=== PATIENT | female | born 1955 | race American Indian/Alaskan Native ===

== ENCOUNTER 2017-09-29 07:18 | Inpatient (IN) | payer MEDICARE ==
[~2017-09-29 07:18] MED LIST: AMIDATE IV ONE; NACL 0.9% 1000 ML ONE; ZEMURON IV ONE
[2017-09-29 10:03] LABS: Hematocrit 23.2 % (30.3-42.9); Hemoglobin 7.5 gm/dl (10.1-14.3); INR 0.95 (0.87-1.13); Mean Corpuscular HGB Conc 32 % (30-34); Mean Corpuscular Hemoglobin 28 pg (28-32); Mean Corpuscular Volume 85 fl (79-97); Partial Thromboplastin Time 22.1 Sec. (24.2-36.6); Platelet Count 348 K/mm3 (140-440); Red Blood Count 2.73 M/mm3 (3.65-5.03)
--- NOTE | 2017-09-29 10:21 | Emergency Department Report ---
HPI - General Chief Complaint: Medical Clearance Time Seen by Provider: 09/29/17 10:01 - HPI HPI: 62-year-old AA female presents to the emergency department via EMS from home after she had bleeding from her right upper extremity dialysis fistula. She woke up around 3:45 AM and noticed that it was bleeding but then it started bleeding more profusely. She held pressure and it stopped about 20 minutes later. However then she was getting herself ready for dialysis this morning and it started to bleed again. She once again held pressure, called 911 and was brought in to be seen. She says that the bleeding stopped prior to coming in this morning. Her pin attacher is Dr. Bell and she gets dialysis on Monday/ Monday/Monday. She also has a history of hypertension and anemia of chronic kidney disease. ED Past Medical Hx - Past Medical History Hx Hypertension: Yes Hx Heart Attack/AMI: No Hx Congestive Heart Failure: No Hx Diabetes: No Hx Deep Vein Thrombosis: No Hx Pulmonary Embolism: No Hx Liver Disease: No Hx Renal Disease: Yes Hx Sickle Cell Disease: No Hx Arthritis: No Hx Seizures: No Hx Kidney Stones: No Hx Asthma: No Hx COPD: No Hx Tuberculosis: No Hx Dementia: No Hx HIV: No Additional medical history: Chronic renal failure - Surgical History Hx Coronary Stent: No Hx Open Heart Surgery: No Hx Pacemaker: No Hx Internal Defibrillator: No Hx Cholecystectomy: No Hx Appendectomy: No Hx Breast Surgery: No Additional Surgical History: Shoulder surgery - Social History Smoking Status: Former Smoker - Medications Home Medications: Home Medications Medication Instructions Recorded Confirmed Last Taken Type ALPRAZolam [Xanax] 0.5 mg PO BID PRN 11/28/13 11/28/13 Unknown History Pantoprazole [Protonix INJ] 40 mg IV QDAY 11/28/13 11/28/13 Unknown History traZODone [Desyrel] 100 mg PO QHS 11/28/13 11/28/13 Unknown History Doxazosin [Cardura] 8 mg PO Q12HR #60 tablet 12/10/13 Unknown Rx Iron Aspgly&Ps Cmplx/C/Sucac 1 each PO QDAY #30 capsule 12/10/13 Unknown Rx [Ferrex 150 Plus] Labetalol [Normodyne TAB] 300 mg PO BID #60 tablet 12/10/13 Unknown Rx Lisinopril [Zestril TAB] 40 mg PO BID #60 tablet 12/10/13 Unknown Rx Multivitamin Tab W-MINERAL 1 each PO QDAY 30 Days tablet 12/10/13 Unknown Rx [Multiple Vitamin/Mineral (Theragran M)] NIFEdipine XL [Procardia Xl] 90 mg PO Q12HR #60 tablet 12/10/13 Unknown Rx Ondansetron [Zofran] 4 mg PO Q8HR PRN #10 tablet 12/10/13 Unknown Rx Pantoprazole [Protonix TAB] 40 mg PO QDAY #30 tablet 12/10/13 Unknown Rx hydrALAZINE [Apresoline TAB] 100 mg PO Q8HR #90 tablet 12/10/13 Unknown Rx ED Review of Systems ROS: Stated complaint: BLEEDING FROM DIALYSIS FISTULA Other details as noted in HPI Comment: All other systems reviewed and negative Constitutional: denies: chills, fever Eyes: denies: eye pain, eye discharge, vision change ENT: denies: ear pain, throat pain Respiratory: denies: cough, shortness of breath, wheezing Cardiovascular: denies: chest pain, palpitations Gastrointestinal: denies: abdominal pain, nausea, diarrhea Genitourinary: denies: urgency, dysuria, discharge Musculoskeletal: denies: back pain, joint swelling, arthralgia Skin: denies: rash, lesions Neurological: denies: headache, weakness, paresthesias Physical Exam - Physical Exam Vital Signs: Vital Signs 09/29/17 09/29/17 08:52 08:53 Temperature 97.4 F L Pulse Rate 76 Respiratory 13 14 Rate Blood Pressure 122/86 [Left] O2 Sat by Pulse 100 100 Oximetry Physical Exam: GENERAL: The patient is well-developed well-nourished. HENT: Normocephalic. Atraumatic. Patient has moist mucous membranes. EYES: Extraocular motions are intact. Pupils equal reactive to light bilaterally. NECK: Supple. Trachea is midline. CHEST/LUNGS: Clear to auscultation. There is no respiratory distress noted. HEART/CARDIOVASCULAR: Regular. There is no tachycardia. There is no murmur. ABDOMEN: Abdomen is soft, nontender. Patient has normal bowel sounds. There is no abdominal distention. SKIN: Skin is warm and dry. NEURO: The patient is awake, alert, and oriented. The patient is cooperative. The patient has no focal neurologic deficits. The patient has normal speech and gait. MUSCULOSKELETAL: There is no tenderness or deformity. There is no limitation range of motion. There is no evidence of acute injury. There is a right upper extremity dialysis fistula that has a palpable thrill in home to the proximal portion but none to the distal portion. Distal pulses intact. ED Course Vital Signs 09/29/17 09/29/17 08:52 08:53 Temperature 97.4 F L Pulse Rate 76 Respiratory 13 14 Rate Blood Pressure 122/86 [Left] O2 Sat by Pulse 100 100 Oximetry - Consultations Consultation #1: I spoke with the patient's pin attacher, Dr. Hilliard, who is aware of the patient 's presentation for bleeding dialysis fistula and he is aware that the fistula does not appear to be working at this time with concern for a distal clot. He says that he still wants the patient discharged to follow-up at the dialysis clinic from the emergency Department where he will facilitate an evaluation by the patient's vascular physicians, through [facility], at the clinic. 09/29/17 11:28 ED Medical Decision Making - Lab Data Result diagrams: 09/29/17 09:20 09/29/17 09:20 - Medical Decision Making Patient presented with complaint of bleeding from the dialysis fistula that started earlier this morning but stopped prior presentation. She has been in the emergency department for greater than 4 hours and there has been no return of her fistula bleeding. However just prior to discharge, I reevaluated the fistula and I have concern for a distal clot or malfunction of the fistula as there is no palpable thrill or audible home to the distal portion. I contacted the patient's pin attacher who still would like the patient discharged to the dialysis clinic where he says he has the capability of getting the patient evaluated by her own vascular physicians through [facility]. All of this has been told to the patient and she understands and agrees to the plan. She does have some anemia with a hemoglobin of 7.5 which is lower than her previous hemoglobin of 8.3, but otherwise the patient does not appear symptomatic. She was seen in the emergency department and appears stable. Vital signs stable throughout her ED course. - Differential Diagnosis bleeding fistula, pseudoaneurysm, clot Critical Care Time: No Critical care attestation.: If time is entered above; I have spent that time in minutes in the direct care of this critically ill patient, excluding procedure time. ED Disposition Clinical Impression: Hemorrhage of arteriovenous fistula Qualifiers: Encounter type: initial encounter Qualified Code(s): T82.838A - Hemorrhage due to vascular prosthetic devices, implants and grafts, initial encounter Dialysis AV fistula malfunction Qualifiers: Encounter type: initial encounter Qualified Code(s): T82.590A - Other mechanical complication of surgically created arteriovenous fistula, initial encounter Disposition: TO HOME OR SELFCARE Is pt being admited?: No Condition: Stable Instructions: End-Stage Kidney Disease (ED) Additional Instructions: Please go to your dialysis clinic from the emergency department. Your pin attacher, Dr Hilliard, is aware of the previous bleeding and current malfunction of your dialysis fistula and says that he will have you evaluated by a vascular physician. Return to the emergency department with any worsening of your symptoms or any acute distress. Referrals: MARGI ABDULLAHI MD [Staff Physician] - [facility] Time of Disposition: 11:31
--- NOTE | 2017-09-29 12:20 | History and Physical Report ---
History of Present Illness Chief complaint: My arm is bleeding History of present illness: 62 YO Female with HTN, ESRD on HD(M,W,F), presents to ED for evaluation. Pt states that she has experienced bleeding from her right arm, at the site of herdialysis fistula. Pt states that she awoke from sleep at 0345 hours and discovered bleeding from her fistula. Pt states that bleeding got progressively worse and then stopped approximately 20 minutes later. Pt states that bleeding resumed this morning while getting ready for dialysis this morning. Pt held pressure, and called EMS. Pt transported to [facility] for evaluation and treatment. Pt seen and evaluated in ED and subsequently admitted to medical floor. Vascular surgery consulted. Past History Past Medical History: ESRD, hypertension Past Surgical History: Other (shoulder surgery) Social history: single Family history: hypertension Medications and Allergies Allergies Allergy/AdvReac Type Severity Reaction Status Date / Time codeine AdvReac Nausea Verified 11/28/13 09:46 Home Medications Medication Instructions Recorded Confirmed Last Taken Type ALPRAZolam [Xanax] 0.5 mg PO BID PRN 11/28/13 09/29/17 09/28/17 History Labetalol [Normodyne TAB] 300 mg PO BID #60 tablet 12/10/13 09/29/17 09/28/17 Rx Butalb/Acetamin/Caff 50-325-40 1 tab PO Q6HR PRN 09/29/17 09/29/17 Unknown History [Fioricet] Cyclobenzaprine [Flexeril] 10 mg PO HS PRN 09/29/17 09/29/17 09/28/17 History Dexlansoprazole [Dexilant] 60 mg PO QDAY 09/29/17 09/29/17 09/28/17 History NIFEdipine [] 90 mg PO BID 09/29/17 09/29/17 09/28/17 History Ranitidine HCl [Heartburn Relief] 150 mg PO QPM 09/29/17 09/29/17 09/28/17 History Sevelamer Carbonate [Renvela] 2 tab PO TIDWM MDD 6,400 mg 09/29/17 09/29/1708/17 History Vit B Comp No.3/Folic/C/Biotin 1 each PO QDAY 09/29/17 09/29/17 09/28/17 History [Nephro-Britney Rx Tablet] Zolpidem [Ambien] 10 mg PO QHS PRN 09/29/17 09/29/17 09/28/17 History Review of Systems Constitutional: no weight loss, no weight gain, no fever, no chills Ears, nose, mouth and throat: no ear pain, no ear discharge, no tinnitis, no decreased hearing, no nose pain Breasts: no change in shape, no swelling, no mass Cardiovascular: no chest pain, no orthopnea, no palpitations, no rapid/ irregular heart beat, no edema, no syncope Respiratory: no cough, no cough with sputum, no excessive sputum, no hemoptysis , no shortness of breath, no dyspnea on exertion Gastrointestinal: no nausea, no vomiting, no diarrhea, no constipation, no change in bowel habits Genitourinary Female: no pelvic pain, no flank pain, no menorrhagia, no dysuria , no urinary frequency, no urgency, no stress incontinence, no post void dribbling Rectal: no pain, no incontinence, no bleeding, no itching Musculoskeletal: no neck stiffness, no neck pain, no shooting arm pain, no arm numbness/tingling, no low back pain, no shooting leg pain Integumentary: no rash, no pruritis, no redness, no sores, no wounds Neurological: no head injury, no transient paralysis, no paralysis, no weakness , no parathesias, no numbness, no tingling Psychiatric: no anxiety, no memory loss, no change in sleep habits, no sleep disturbances, no insomnia, no hypersomnia Endocrine: no cold intolerance, no heat intolerance, no polyphagia, no excessive thirst, no polydipsia, no polyuria Hematologic/Lymphatic: no easy bruising, no easy bleeding, no lymphadenopathy, no lymphedema Allergic/Immunologic: no urticaria, no allergic rhinitis, no wheezing, no persistent infections, no anaphylaxis Exam - Constitutional Vitals: Temp Pulse Resp BP Pulse Ox 97.4 F L 84 15 158/91 100 09/29/17 08:52 09/29/17 11:56 09/29/17 11:56 09/29/17 11:56 09/29/17 11:56 General appearance: Present: no acute distress, well-nourished - EENT Eyes: Present: PERRL ENT: hearing intact, clear oral mucosa - Neck Neck: Present: supple, normal ROM - Respiratory Respiratory effort: normal Respiratory: bilateral: CTA - Cardiovascular Heart Sounds: Present: S1 & S2. Absent: rub, click - Extremities Extremities: pulses symmetrical, No edema Peripheral Pulses: within normal limits - Abdominal General gastrointestinal: Present: soft, non-tender, non-distended, normal bowel sounds Female genitourinary: Present: normal - Integumentary Integumentary: Present: clear, warm, dry - Musculoskeletal Musculoskeletal: gait normal, strength equal bilaterally - Psychiatric Psychiatric: appropriate mood/affect, intact judgment & insight - Neurologic Neurologic: CNII-XII intact, moves all extremities Results - Labs CBC & Chem 7: 09/29/17 09:20 09/29/17 09:20 Labs: Abnormal lab results 09/29/17 09/29/17 09/29/17 Range/Units 09:20 09:20 09:20 WBC 16.1 H (4.5-11.0) K/mm3 RBC 2.73 L (3.65-5.03) M/mm3 Hgb 7.5 L (10.1-14.3) gm/dl Hct 23.2 L (30.3-42.9) % RDW 18.0 H (13.2-15.2) % APTT 22.1 L (24.2-36.6) Sec. BUN 22 H (7-17) mg/dL Creatinine 7.4 H (0.7-1.2) mg/dL Assessment and Plan - Patient Problems (1) SIRS (systemic inflammatory response syndrome) Current Visit: Yes Status: Acute Plan to address problem: Broad specturm antibiotics, blood cultures, serial lactic acid, Chest X ray, monitor uop q shift. (2) Dialysis AV fistula malfunction Current Visit: Yes Status: Acute Qualifiers: Encounter type: initial encounter Qualified Code(s): T82.590A - Other mechanical complication of surgically created arteriovenous fistula, initial encounter Plan to address problem: Nephrology consulted, Vascular surgery consulted, supportive care. (3) ARF (acute renal failure) Current Visit: No Status: Acute Qualifiers: Acute renal failure type: with acute tubular necrosis Qualified Code(s): N17.0 - Acute kidney failure with tubular necrosis Plan to address problem: fluid restriction, Nephrology consulted for dialysis. (4) DVT prophylaxis Current Visit: No Status: Acute
[2017-09-29] MEDS ORDERED: DULCOLAX PR PRN (12:21)
[2017-09-29] MEDS ORDERED: PROVENTIL IH PRN (12:21)
[2017-09-29] MEDS ORDERED: MILK OF MAGNESIA PO PRN (12:21)
--- NOTE | 2017-09-29 12:51 | Consultation ---
History of Present Illness - Reason for Consult Consult date: 09/29/17 end stage renal disease - History of Present Illness The patient is a 62 YO AAF with history of HTN, ESRD on HD(M,W,F & followed by ) and anemia presented to the ED for evaluation for bleeding from her right arm AV fistula. Patient first noticed bleeding at 0345 this AM. She appied pressure and the bleeding was stopped approximately 20 minutes later. Patient states that bleeding resumed later. She called EMS. Vascular surgery consulted. She was last dialyzed 2 days ago. Past History Past Medical History: anemia, dialysis, ESRD, hypertension Medications and Allergies Allergies Allergy/AdvReac Type Severity Reaction Status Date / Time codeine AdvReac Nausea Verified 11/28/13 09:46 Home Medications Medication Instructions Recorded Confirmed Last Taken Type ALPRAZolam [Xanax] 0.5 mg PO BID PRN 11/28/13 09/29/17 09/28/17 History Labetalol [Normodyne TAB] 300 mg PO BID #60 tablet 12/10/13 09/29/17 09/28/17 Rx Butalb/Acetamin/Caff 50-325-40 1 tab PO Q6HR PRN 09/29/17 09/29/17 Unknown History [Fioricet] Cyclobenzaprine [Flexeril] 10 mg PO HS PRN 09/29/17 09/29/17 09/28/17 History Dexlansoprazole [Dexilant] 60 mg PO QDAY 09/29/17 09/29/17 09/28/17 History NIFEdipine [] 90 mg PO BID 09/29/17 09/29/17 09/28/17 History Ranitidine HCl [Heartburn Relief] 150 mg PO QPM 09/29/17 09/29/17 09/28/17 History Sevelamer Carbonate [Renvela] 2 tab PO TIDWM MDD 6,400 mg 09/29/17 09/29/1708/17 History Vit B Comp No.3/Folic/C/Biotin 1 each PO QDAY 09/29/17 09/29/17 09/28/17 History [Nephro-Britney Rx Tablet] Zolpidem [Ambien] 10 mg PO QHS PRN 03/02/18 03/02/18 03/01/18 History Review of Systems Constitutional: no weight loss, no weight gain, no fever, no chills, no anorexia , no poor appetite Ears, nose, mouth and throat: no epistaxis Breasts: deferred Cardiovascular: high blood pressure, no chest pain, no orthopnea, no palpitations, no edema, no syncope, no lightheadedness, no shortness of breath, no leg edema Respiratory: no cough, no cough with sputum, no shortness of breath, no home oxygen Gastrointestinal: no abdominal pain, no nausea, no vomiting, no diarrhea, no jaundice Genitourinary Female: no hematuria Rectal: no bleeding Neurological: no paralysis, no convulsions, no aphasia, no change in speech, no change in mentation, no confusion, no loss of vision Psychiatric: no disorientation Endocrine: no weight change Exam - Vital Signs Vital signs: Vital Signs Pulse Ox 96 09/29/17 07:46 - General Appearance General appearance: well-developed, appears stated age, other (no distress) EENT: ATNC, PERRL, hearing intact, vision intact Neck: Present: neck supple, trachea midline Respiratory: Clear to Ascultation Heart: regular, S1S2, no murmurs Gastrointestinal: Present: normoactive bowel sounds Integumentary: no rash Neurologic: no focal deficit, no asterixis, alert and oriented x3 Musculoskeletal: Present: other (no edema, right arm AVF with no bruit) Psychiatric: mood/affect appropriate, cooperative Results - Lab Results 09/29/17 09:20 09/29/17 09:20 Most recent lab results Calcium 9.0 mg/dL (8.4-10.2) 09/29/17 09:20 Assessment and Plan 1. Bleeding AV fistula: Right arm AVF is clotted. Vascular consulted. No active bleeding at present. 2. ESRD: Patient usual HD schedule is MWF. Missed HD today at outpatient center. Await Vascular eval and possible angioplasty. 3. Hypertension: Monitor BP. 4. Anemia: Epogen.
[2017-09-29] MEDS ORDERED: VANCOMYCIN VIAL IV ONE (12:56)
[2017-09-29] MEDS ORDERED: VANCOMYCIN PHARMACY TO DOSE IV SCH (13:00)
[2017-09-29] MEDS ORDERED: ZOFRAN PO PRN (13:04)
[2017-09-29] MEDS ORDERED: XANAX PO PRN (13:04)
[2017-09-29] MEDS ORDERED: HEPARIN/NS 5000 UNIT/500ML(CATH LAB) 1,000 ML IR ONE (13:18)
[2017-09-29] MEDS ORDERED: HEPARIN 10,000 UNITS/10 ML ONE (13:18)
[2017-09-29] MEDS ORDERED: XYLOCAINE 2% INFILTRATI ONE (13:19)
[2017-09-29] MEDS ORDERED: CALAN ONE (13:19)
[2017-09-29] MEDS ORDERED: ANCEF/STERILE WATER 2 GM/20 ML 2 GM/20 ML SYRINGE IV ONE (13:20)
--- NOTE | 2017-09-29 13:27 | Consultation ---
History of Present Illness - Reason for Consult Consult date: 09/29/17 Bleeding from right AVF Requesting physician: MARGI ABDULLAHI - History of Present Illness The patient is a 62 yo female with a history of ESRD. She has and elevated right brachiobasilic fistula that was created 4 years ago. She went to dialysis today and had a full treatment but had excessive bleeding after dialysis. She presented after dialysis with persistent bleeding. Despite pressure being held the bleeding persisted. She has not other complaints at this time. Past History Past Medical History: dialysis, ESRD, GERD, hypertension, other (anxiety) Past Surgical History: Other (Pemacath, right AVF, right shoulder surgery) Social history: no significant social history Family history: no significant family history Medications and Allergies Allergies Allergy/AdvReac Type Severity Reaction Status Date / Time codeine AdvReac Nausea Verified 11/28/13 09:46 Home Medications Medication Instructions Recorded Confirmed Last Taken Type ALPRAZolam [Xanax] 0.5 mg PO BID PRN 11/28/13 11/28/13 Unknown History Labetalol [Normodyne TAB] 300 mg PO BID #60 tablet 12/10/13 Unknown Rx Butalb/Acetamin/Caff 50-325-40 1 tab PO Q6HR PRN 09/29/17 09/29/17 Unknown History [Fioricet] Cyclobenzaprine [Flexeril] 10 mg PO HS PRN 09/29/17 09/29/17 09/28/17 History Dexlansoprazole [Dexilant] 60 mg PO QDAY 09/29/17 09/29/17 09/28/17 History NIFEdipine [] 90 mg PO BID 09/29/17 09/29/17 09/28/17 History Ranitidine HCl [Heartburn Relief] 150 mg PO QPM 09/29/17 09/29/17 09/28/17 History Sevelamer Carbonate [Renvela] 2 tab PO TIDWM MDD 6,400 mg 09/29/17 09/29/1708/17 History Vit B Comp No.3/Folic/C/Biotin 1 each PO QDAY 09/29/17 09/29/17 09/28/17 History [Nephro-Britney Rx Tablet] Zolpidem [Ambien] 10 mg PO QHS PRN 09/29/17 09/29/1709/28/18 History Active Meds: Active Medications Acetaminophen (Tylenol) 650 mg PO Q4H PRN PRN Reason: Pain MILD(1-3)/Fever >100.5/RAMAN Albuterol (Proventil) 2.5 mg IH Q4HRT PRN PRN Reason: Shortness Of Breath Alprazolam (Xanax) 0.5 mg PO BID PRN PRN Reason: Anxiety Bisacodyl (Dulcolax) 10 mg WI QDAY PRN PRN Reason: Constipation unrelieved by MOM Doxazosin Mesylate (Cardura) 8 mg PO Q12HR JOSE Hydralazine HCl (Apresoline) 100 mg PO Q8HR JOSE Piperacillin Sod/Tazobactam Sod (Zosyn/Ns 4.5gm/100ml) 4.5 gm in 100 mls @ 200 mls/hr IV Q8HR JOSE; Protocol Labetalol HCl (Normodyne) 300 mg PO BID JOSE Lisinopril (Zestril) 40 mg PO BID JOSE Magnesium Hydroxide (Milk Of Magnesia) 30 ml PO Q4H PRN PRN Reason: Constipation Miscellaneous Medication (Iron Aspgly&Ps Cmplx/C/Sucac [Ferrex 150 Plus]) 1 each PO QDAY JOSE Multivitamins/Minerals (Theragran-M Tab) 1 each PO QDAY JOSE Nifedipine (Procardia Xl) 90 mg PO Q12HR JOSE Ondansetron HCl (Zofran) 4 mg IV Q8H PRN PRN Reason: N/V unrelieved by Reglan Ondansetron HCl (Zofran) 4 mg PO Q8HR PRN PRN Reason: Nausea And Vomiting Pantoprazole Sodium (Protonix) 40 mg PO QDAY JOSE Trazodone HCl (Desyrel) 100 mg PO QHS JOSE Vancomycin HCl (Vancomycin Pharmacy To Dose) 1 each IV PKCONSULT JOSE Vancomycin HCl (Vancomycin Vial) 1,000 mg 20 mg/kg (1000 mg) IV ONCE ONE; Protocol Stop: 09/29/17 12:57 Review of Systems All systems: negative Exam - Constitutional Vitals: Temp Pulse Resp BP Pulse Ox 97.4 F L 84 15 189/97 99 09/29/17 08:52 09/29/17 11:56 09/29/17 11:56 09/29/17 13:00 09/29/17 13:00 General appearance: Present: no acute distress - Neck Neck: Present: supple - Respiratory Respiratory effort: normal - Cardiovascular Rhythm: regular - Extremities Extremities: no ischemia, pulses intact, normal temperature Extremity abnormal: other (right AVF with weak pulse, no thrill, no ulceration no actice bleeding at this time) - Abdominal General gastrointestinal: Present: soft, non-tender, non-distended - Rectal Rectal Exam: deferred - Integumentary Integumentary: Present: clear - Musculoskeletal Musculoskeletal: strength equal bilaterally Results - Labs CBC & Chem 7: 09/29/17 09:20 09/29/17 09:20 Labs: Abnormal lab results 09/29/17 09/29/17 09/29/17 Range/Units 09:20 09:20 09:20 WBC 16.1 H (4.5-11.0) K/mm3 RBC 2.73 L (3.65-5.03) M/mm3 Hgb 7.5 L (10.1-14.3) gm/dl Hct 23.2 L (30.3-42.9) % RDW 18.0 H (13.2-15.2) % APTT 22.1 L (24.2-36.6) Sec. BUN 22 H (7-17) mg/dL Creatinine 7.4 H (0.7-1.2) mg/dL Assessment and Plan Patient with bleeding from right AVF. Plan right fistulagram with intervention
[2017-09-29] MEDS: VERSED ONE ×2 (13:30→13:55)
[2017-09-29] MEDS: SUBLIMAZE ONE ×2 (13:30→13:55)
[2017-09-29] MEDS ORDERED: ZOSYN/NS 4.5GM/100ML 4.5 GM/100 ML VIAL IV SCH (14:00)
[2017-09-29] MEDS ORDERED: VANCOMYCIN/NS 1 GM/250 ML 1 GM/250 ML BAG IV NR (14:00)
[2017-09-29] MEDS ORDERED: NACL 0.9% 100 ML IV PRN (14:15)
--- NOTE | 2017-09-29 16:05 | Operative Report ---
Operative Report Operative Report: Date of Procedure: 09/29/2017 Pre-operative Diagnosis: Complications of Dialysis Access Post-operative Diagnosis: Same Procedure(s): 1. Access Right AV Fistula with 7 South African Sheath Venous 2. Access Right AV Fistula with 6 South African Sheath Arterial 3. Fistulogram with Central Venogram 4. Angioplasty and Stenting Graft of Right AV Fistula With 9 x 60 Balloon and 8 x 5 cm Viabahn Stent Graft 5. Angioplasty of Arterial Inflow of Right AV Fistula with 5 x 60 Balloon 6. Radiological Supervision with Interpretation Surgeon: Franck Dunn M.D. Bag Builder: None Anesthesia: Local and IV sedation EBL: Minimal Counts: Correct Complications: None Condition: Stable Findings: 90% stenosis of the venous outflow with recoil of the lesion after balloon angioplasty with an 8 x 40 and 9 x 60 balloon. There was no residual stenosis after placement of an 8 x 5 cm stent graft. There was approximately 80% stenosis of the arterial inflow without residual stenosis after treatment of a 5 x 60 balloon. Specimen: None Indication: The patient is a 62-year-old female with a history of end-stage renal disease on hemodialysis through a right arm AV fistula. She presented to the emergency department with bleeding from the fistula for dialysis. She is in need of a fistulogram with possible intervention. She was given the risk, benefits, and alternative procedures and consented to the procedure. Description of Procedure: The patient was brought into the dental laboratory technician and laid in supine position. After she was adequately sedated her right arm was prepped and draped in normal sterile fashion. After anesthetizing the skin a micropuncture needle was used to access the fistula towards the venous outflow and a 0.018 wire was advanced. The micropuncture sheath was placed by Seldinger technique and a 0.035 J-wire was advanced into the fistula. A 7 South African sheath was placed by Seldinger technique and a fistulogram was performed that demonstrated 90% stenosis of the venous outflow. This area was ballooned with an 8 x 40 balloon however there was approximately 70% residual stenosis. I performed additional balloon angioplasty with a 9 x 60 balloon and again this demonstrated 70% residual stenosis. I placed an 8 x 5 cm Viabahn Stent Graft and post dilated it with an 8 x 40 balloon. The follow up fistulagram demonstrated no residual stenosis. After anesthesizing the skin I used micropuncture technique to access the fistula towards the arterial inflow and placed a 6 South African sheath by Seldinger technique. I used a vertebral catheter and a 0.035 Bentson wire to cannulate the proximal brachial artery. Performed an arteriogram that demonstrated approximately 80% stenosis of the arterial inflow in the fistula. I performed balloon angioplasty with a 5 x 60 balloon with the result of no residual stenosis. I removed all portals and sheath and close the entry sites using 4-0 chromic and pursestring fashion. The patient tolerated the procedure well. All sponge, needle, and instrument counts were correct. The patient was taken to the recovery area in stable condition.
[2017-09-29] MEDS ORDERED: NACL 0.9% 250ML 250 ML IV ONE (19:00)
[2017-09-29] MEDS: APRESOLINE PO SCH (22:00)
[2017-09-29] MEDS ORDERED: DESYREL PO SCH (22:00)
[2017-09-29] MEDS: ZESTRIL PO SCH (22:00)
[2017-09-29] MEDS ORDERED: PROCARDIA XL PO SCH (22:00)
[2017-09-29] MEDS: CARDURA PO SCH (22:00)
[2017-09-29] MEDS: NORMODYNE PO SCH (22:00)
[2017-09-30] MEDS ORDERED: VANCOMYCIN/NS 1 GM/250 ML 1 GM/250 ML BAG IV ONE (02:30)
[2017-09-30] MEDS: ZOSYN/NS 2.25 GM/50ML 2.25 GM/50 ML BAG IV SCH ×3 (02:34→16:11)
[2017-09-30 03:36] LABS: Mean Corpuscular HGB Conc 31 % (30-34); Mean Corpuscular Hemoglobin 28 pg (28-32); Mean Corpuscular Volume 89 fl (79-97); Platelet Count 278 K/mm3 (140-440); Red Blood Count 1.81 M/mm3 (3.65-5.03); Red Cell Distribution Width 18.9 % (13.2-15.2)
[2017-09-30 03:47] LABS: Hematocrit 16.1 % (30.3-42.9)
[2017-09-30] MEDS ORDERED: NACL 0.9% 500 ML 500 ML IV ONE (04:19)
[2017-09-30] MEDS ORDERED: D50W (25GM) Syringe IV ONE ×3 (04:54→05:08)
[2017-09-30] MEDS ORDERED: ATROPINE 0.1% (CARDIAC) ONE (04:54)
[2017-09-30] MEDS ORDERED: ADRENALIN ONE (04:54)
--- NOTE | 2017-09-30 05:23 | Event Note ---
Date: 09/30/17 vivian dunham was called on this patient as the patient became hypoxic, asystole and BP unrecordable. CPR was initiated one amp of atropione was administered followed by 1 amp. of norepinephrine . Her blood sugar was noted to be 20 and one amp of D50 was administered. she was subsequently intubated. her repeat blood sugar was 170. her BP and pulse came back. Her O2 sat was > 95%. patient remained lethargic. at this time her HR is around 90 - 100 and her BP is 160 170m systolic. Patient will be transferred to ICU. check labs CBC and comp.
--- NOTE | 2017-09-30 05:30 | XRay Report ---
FINAL REPORT EXAM: XR CHEST 1V AP HISTORY: POST INTUBATION / CODE TECHNIQUE: AP portable view(s) of the chest obtained. PRIORS: None. FINDINGS: The endotracheal tube terminates approximately 1 cm from the mike. No mediastinal shift. Cardiac silhouette is not enlarged. No pneumothorax, effusion, or focal pulmonary opacity identified. No acute skeletal findings. Proximal right humerus fixation hardware. Right axillary vascular stent. IMPRESSION: Endotracheal tube terminates approximately 1 cm from the mike. Consider retraction of 2-3 cm for more optimal positioning. No pneumothorax.
[2017-09-30] MEDS: LEVOPHED DRIP 4 MG/NS 250 ML 4 MG/250 ML BAG IV SCH ×3 (05:45→06:44)
--- NOTE | 2017-09-30 06:54 | Progress Note ---
Assessment and Plan 1. Bleeding AV fistula: Patient was found to have clotted right arm AVF. S/p angioplasty and stent placed yesterday. 2. ESRD: Patient received hemodialysis yesterday for about a hour and a half. 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 3. Hypotension: On Levoped. Monitor BP. 4. Anemia: S/p 2 units of PRBC. Epogen. 5. Respiratory failure: On vent. 6. S/p Cardiac arrest. Subjective Date of service: 09/30/17 Interval history: Events yesterday noted. Patient coded yesterday. Currently intubated on the vent and also on pressors. Objective - Vital Signs Vital signs: Vital Signs - 12hr 09/29/17 09/29/17 09/29/17 21:48 22:00 22:30 Temperature 98.4 F Pulse Rate 102 H 106 H Respiratory 18 Rate Blood Pressure 98/52 111/56 O2 Sat by Pulse 100 100 100 Oximetry 09/30/17 09/30/17 09/30/17 03:58 05:26 05:28 Temperature 98.0 F Pulse Rate 84 99 H 101 H Respiratory 20 12 Rate Blood Pressure 90/64 77/57 O2 Sat by Pulse 100 100 Oximetry 09/30/17 09/30/17 09/30/17 05:30 05:40 05:50 Temperature Pulse Rate 102 H 102 H 95 H Respiratory 14 12 12 Rate Blood Pressure 77/57 83/31 O2 Sat by Pulse 100 100 99 Oximetry 09/30/17 09/30/17 09/30/17 06:00 06:10 06:20 Temperature Pulse Rate 91 H 91 H 92 H Respiratory 12 12 12 Rate Blood Pressure 72/30 84/35 83/28 O2 Sat by Pulse 86 99 100 Oximetry - General Appearance General appearance: well-developed, appears stated age, intubated EENT: ATNC, PERRL Neck: supple Respiratory: Present: Clear to Ascultation Cardiology: regular, S1S2, no murmurs Gastrointestinal: normoactive bowel sounds Integumentary: no rash, warm and dry Neurologic: other (opens eyes) Musculoskeletal: other (no edema, right arm AVF with bruit) - Lab 09/30/17 12:22 09/29/17 09:20 Most recent lab results Calcium 9.0 mg/dL (8.4-10.2) 09/29/17 09:20
[2017-09-30 07:22] LABS: INR 2.66 (0.87-1.13)
[2017-09-30 07:23] LABS: Partial Thromboplastin Time 48.3 Sec. (24.2-36.6)
[2017-09-30] MEDS ORDERED: SUBLIMAZE IV STA ×2 (08:17→08:19)
[2017-09-30] MEDS ORDERED: ATIVAN IV STA (08:17)
--- NOTE | 2017-09-30 09:24 | Progress Note ---
Assessment and Plan Assessment and plan: --Cardiac Arrest s/p CPR Continue supportive care, cardiac enzymes, EKG, cardiology evaluation if needed --Acute hypoxic respiratory failure; Continue ventilatory support, nebulizers, pulmonary critical evaluation Venous tolerated extubate --Shock; possible septic shock, continue pressors per protocol, sepsis workup --h/o hypertension; is hypotensive now, hold blood pressure medications --Sepsis; continue empiric antibiotics, follow cultures , ID evaluation if needed --Severe anemia; requiring 2 units of PRBC, closely monitor H&H Transfuse as needed --End-stage renal disease; on hemodialysis FMW Received HD yesterday, nephrology following --Malfunctioning of her right AV fistula; status post vascular surgical procedure --DVT prophylaxis; SCD --Full CODE STATUS Closely monitor the patient and adjust management as needed Patient's condition, treatment plan, recent events discussed in detail with the patient's sister at the bedside CODE STATUS discussed, full code Answered all her questions to her satisfaction Critical care time 35 minutes History Interval history: Patient Seen and examined medical records reviewed Last night events noted Had cardiac arrest requiring CPR, intubated on ventilatory support Hypotensive on pressors Severely anemic and received 2 units of PRBC Sister and niece at the bedside Patient is orally intubated and sedated On ventilatory support Not in acute distress Vital signs reviewed Hospitalist Physical - Constitutional Vitals: Temp Pulse Resp BP Pulse Ox 95.7 F L 83 22 83/37 100 09/30/17 08:55 09/30/17 08:55 09/30/17 08:55 09/30/17 08:55 09/30/17 08:55 General appearance: Present: no acute distress, well-nourished - EENT Eyes: Present: PERRL, EOM intact - Neck Neck: Present: supple, normal ROM - Respiratory Respiratory effort: normal Respiratory: bilateral: diminished, rhonchi, negative: rales, wheezing - Cardiovascular Rhythm: regular Heart Sounds: Present: S1 & S2 - Extremities Extremities: abnormal (fistula right arm) Extremity abnormal: edema - Abdominal General gastrointestinal: soft, non-tender, non-distended, normal bowel sounds - Integumentary Integumentary: Present: clear, warm - Psychiatric Psychiatric: other (intubated and sedated) - Neurologic Neurologic: other (intubated and sedated) Results - Labs CBC & Chem 7: 09/30/17 03:04 09/29/17 09:20 Labs: Laboratory Last Values WBC 25.4 K/mm3 (4.5-11.0) H 09/30/17 03:04 RBC 1.81 M/mm3 (3.65-5.03) L 09/30/17 03:04 Hgb 5.0 gm/dl (10.1-14.3) L* 09/30/17 03:04 Hct 16.1 % (30.3-42.9) L* D 09/30/17 03:04 MCV 89 fl (79-97) 09/30/17 03:04 MCH 28 pg (28-32) 09/30/17 03:04 MCHC 31 % (30-34) 09/30/17 03:04 RDW 18.9 % (13.2-15.2) H 09/30/17 03:04 Plt Count 278 K/mm3 (140-440) 09/30/17 03:04 Lymph % (Auto) Apprentice Lineman Third Step 09/29/17 09:20 Bledsoe % (Auto) Apprentice Lineman Third Step 09/29/17 09:20 Eos % (Auto) Apprentice Lineman Third Step 09/29/17 09:20 Baso % (Auto) Apprentice Lineman Third Step 09/29/17 09:20 Lymph # Apprentice Lineman Third Step 09/29/17 09:20 Bledsoe # Apprentice Lineman Third Step 09/29/17 09:20 Eos # Apprentice Lineman Third Step 09/29/17 09:20 Baso # Apprentice Lineman Third Step 09/29/17 09:20 Seg Neutrophils % Apprentice Lineman Third Step 09/29/17 09:20 Seg Neutrophils # Apprentice Lineman Third Step 09/29/17 09:20 PT 30.2 Sec. (12.2-14.9) H 09/30/17 06:38 INR 2.66 (0.87-1.13) H 09/30/17 06:38 APTT 48.3 Sec. (24.2-36.6) H 09/30/17 06:38 POC ABG pH 7.133 (7.35-7.45) L 09/30/17 05:36 POC ABG pCO2 26.6 (35-45) L 09/30/17 05:36 POC ABG pO2 389 (80-105) H 09/30/17 05:36 POC ABG HCO3 8.9 09/30/17 05:36 POC ABG Total CO2 10 09/30/17 05:36 POC ABG O2 Sat 100 09/30/17 05:36 POC ABG Base Excess -20 09/30/17 05:36 FiO2 100 % 09/30/17 05:36 Sodium 141 mmol/L (137-145) 09/29/17 09:20 Potassium 3.9 mmol/L (3.6-5.0) 09/29/17 09:20 Chloride 98.3 mmol/L (98-107) 09/29/17 09:20 Carbon Dioxide 24 mmol/L (22-30) 09/29/17 09:20 Anion Gap 23 mmol/L 09/29/17 09:20 BUN 22 mg/dL (7-17) H 09/29/17 09:20 Creatinine 7.4 mg/dL (0.7-1.2) H 09/29/17 09:20 Estimated GFR 7 ml/min 09/29/17 09:20 BUN/Creatinine Ratio 3 % 09/29/17 09:20 Glucose 99 mg/dL (65-100) 09/29/17 09:20 POC Glucose 167 (70-105) H 09/30/17 06:56 Lactic Acid 8.10 mmol/L (0.7-2.0) H* 09/30/17 06:38 Calcium 9.0 mg/dL (8.4-10.2) 09/29/17 09:20 Blood Type AB POSITIVE 09/29/17 09:20 Antibody Screen Negative 09/29/17 09:20 Crossmatch See Detail 09/29/17 09:20
[2017-09-30] MEDS: CARDURA PO SCH ×2 (10:00→21:09)
[2017-09-30] MEDS: NORMODYNE PO SCH ×2 (10:00→21:07)
[2017-09-30] MEDS: PROCARDIA XL PO SCH (10:00)
[2017-09-30] MEDS: APRESOLINE PO SCH ×4 (10:00→21:19)
[2017-09-30] MEDS ORDERED: [UNRECOGNIZED DRUG - OTHER] PO SCH (10:00)
[2017-09-30] MEDS: ZESTRIL PO SCH ×2 (10:00→22:40)
[2017-09-30] MEDS: THERAGRAN-M Tab PO SCH (10:05)
[2017-09-30] MEDS: PROTONIX PO SCH (10:05)
[2017-09-30] MEDS ORDERED: ATIVAN ONE (10:23)
--- NOTE | 2017-09-30 10:50 | Operative Report ---
Operative Report Operative Report: Operative note: Date: 09/30/2017 Preoperative diagnosis: Hypotension requiring pressor support Postoperative diagnosis: Same. Operation: Right femoral triple-lumen insertion Surgeon: Bea Mendosa. Asst.: None Anesthesia: Local EBL: Minimal Findings: None Indications: 62-year-old female coded around 5 AM this morning and was transferred to ICU for further resuscitation, she was intubated and was hypotensive requiring pressor support. Operative details: Procedure was performed at the bedside. Patient was prepped and draped right groin in a sterile fashion. Timeout performed. Right femoral vein was accessed under ultrasound guidance with needle. Wire was advanced in the femoral vein and IVC. skin incision was made with 11 blade and dilated with subsequent insertion of triple-lumen catheter. Ports were checked for good flow and flushed with saline. Catheter was secured in place with 3-0 silk stitches and sterile dressing applied. Patient tolerated the procedure well.
[2017-09-30] MEDS ORDERED: ATIVAN IV ONE (10:51)
--- NOTE | 2017-09-30 12:00 | XRay Report ---
Single view abdomen: History: Dobbhoff placement. Findings: Tip of Dobbhoff feeding tube is noted in the distal stomach. Distended stomach with air. Impression: Tip of Dobbhoff feeding tube is noted in stomach.
[2017-09-30 12:39] LABS: Hematocrit 27.4 % (30.3-42.9); Hemoglobin 8.9 gm/dl (10.1-14.3); Mean Corpuscular HGB Conc 33 % (30-34); Mean Corpuscular Hemoglobin 28 pg (28-32); Mean Corpuscular Volume 86 fl (79-97); Platelet Count 203 K/mm3 (140-440); Red Cell Distribution Width 16.2 % (13.2-15.2)
--- NOTE | 2017-09-30 13:39 | Consultation ---
History of Present Illness Consult date: 09/30/17 Requesting physician: PAUL MILLER Reason for consult: hypoxemia History of present illness: 62 y/o female, cardiac arrest early am with blood sugar of 20. Per report patient had asystole. Received CPR and drugs. Intubated and transitioned to the unit. Severely anemic and likely symptomatic from this as well. Remainder is unobtainable as patient is intubated. She is awake and alert, following commands. On some pressors. Received blood this am. Past History Past Medical History: anemia, dialysis, ESRD, hypertension Past Surgical History: Other (shoulder surgery) Social history: single Family history: hypertension Medications and Allergies Allergies Allergy/AdvReac Type Severity Reaction Status Date / Time codeine AdvReac Nausea Verified 11/28/13 09:46 Home Medications Medication Instructions Recorded Confirmed Last Taken Type ALPRAZolam [Xanax] 0.5 mg PO BID PRN 11/28/13 09/29/17 09/28/17 History Labetalol [Normodyne TAB] 300 mg PO BID #60 tablet 12/10/13 09/29/17 09/28/17 Rx Butalb/Acetamin/Caff 50-325-40 1 tab PO Q6HR PRN 09/29/17 09/29/17 Unknown History [Fioricet] Cyclobenzaprine [Flexeril] 10 mg PO HS PRN 09/29/17 09/29/17 09/28/17 History Dexlansoprazole [Dexilant] 60 mg PO QDAY 09/29/17 09/29/17 09/28/17 History NIFEdipine [] 90 mg PO BID 09/29/17 09/29/17 09/28/17 History Ranitidine HCl [Heartburn Relief] 150 mg PO QPM 09/29/17 09/29/17 09/28/17 History Sevelamer Carbonate [Renvela] 2 tab PO TIDWM MDD 6,400 mg 09/29/17 09/29/1708/17 History Vit B Comp No.3/Folic/C/Biotin 1 each PO QDAY 09/29/17 09/29/17 09/28/17 History [Nephro-Britney Rx Tablet] Zolpidem [Ambien] 10 mg PO QHS PRN 09/29/17 09/29/17 09/28/17 History Active Meds: Active Medications Acetaminophen (Tylenol) 650 mg PO Q4H PRN PRN Reason: Pain MILD(1-3)/Fever >100.5/RAMAN Albuterol (Proventil) 2.5 mg IH Q4HRT PRN PRN Reason: Shortness Of Breath Doxazosin Mesylate (Cardura) 8 mg PO Q12HR [facility] Last Admin: 09/29/17 22:00 Dose: Not Given Epoetin Ranjit (Epogen) 20,000 unit SUB-Q ONCE [facility] Hydralazine HCl (Apresoline) 100 mg PO Q8HR [facility] Last Admin: 09/29/17 22:00 Dose: Not Given Piperacillin Sod/Tazobactam Sod (Zosyn/Ns 2.25 Gm/50ml) 2.25 gm in 50 mls @ 100 mls/hr IV Q12H [facility] Last Admin: 09/30/17 02:41 Dose: 100 mls/hr Sodium Chloride (Nacl 0.9%) 100 mls @ 999 mls/hr IV DESTINY PRN PRN Reason: Hypotension Norepinephrine (Levophed Drip 4 Mg/Ns 250 Ml) 4 mg in 250 mls @ 7.5 mls/hr IV TITR [facility]; Protocol Last Admin: 09/30/17 06:44 Dose: 5 mcg/min, 18.75 mls/hr Labetalol HCl (Normodyne) 300 mg PO BID [facility] Last Admin: 09/29/17 22:00 Dose: Not Given Lisinopril (Zestril) 40 mg PO BID [facility] Last Admin: 09/29/17 22:00 Dose: Not Given Magnesium Hydroxide (Milk Of Magnesia) 30 ml PO Q4H PRN PRN Reason: Constipation Multivitamins/Minerals (Theragran-M Tab) 1 each PO QDAY [facility] Nifedipine (Procardia Xl) 90 mg PO DAILY [facility] Ondansetron HCl (Zofran) 4 mg IV Q8H PRN PRN Reason: N/V unrelieved by Nhung Ondansetron HCl (Zofran) 4 mg PO Q8HR PRN PRN Reason: Nausea And Vomiting Pantoprazole Sodium (Protonix) 40 mg PO QDAY [facility] Vancomycin HCl (Vancomycin Pharmacy To Dose) 1 each IV PKCONSULT [facility] Review of Systems ROS unobtainable: due to endotracheal tube Physical Examination Vital signs: Vital Signs Pulse Ox 96 09/29/17 07:46 General appearance: alert, agitated, appears uncomfortable Eyes: icteric ENT: other (orally intubated and sedated) Neck: supple Effort: normal Ascultation: Bilateral: clear Percussion: Bilateral: not dull Cardiovascular: regular rate and rhythm Gastrointestinal: normoactive bowel sounds, soft Results - Laboratory Findings CBC and BMP: 09/30/17 12:22 09/29/17 09:20 ABG POC ABG pH 7.379 (7.35-7.45) 09/30/17 12:45 POC ABG pCO2 35.2 (35-45) 09/30/17 12:45 POC ABG pO2 201 (80-105) H 09/30/17 12:45 POC ABG HCO3 20.7 09/30/17 12:45 POC ABG Total CO2 22 09/30/17 12:45 POC ABG O2 Sat 100 09/30/17 12:45 PT/INR, D-dimer PT 30.2 Sec. (12.2-14.9) H 09/30/17 06:38 INR 2.66 (0.87-1.13) H 09/30/17 06:38 Abnormal lab findings: Abnormal Labs 09/29/17 09/29/17 09/29/17 09:20 09:20 09:20 WBC 16.1 H RBC 2.73 L Hgb 7.5 L Hct 23.2 L RDW 18.0 H PT INR APTT 22.1 L POC ABG pH POC ABG pCO2 POC ABG pO2 BUN 22 H Creatinine 7.4 H POC Glucose Lactic Acid Crossmatch 09/29/17 09/29/17 09/29/17 09:20 20:04 23:20 WBC RBC Hgb Hct RDW PT INR APTT POC ABG pH POC ABG pCO2 POC ABG pO2 BUN Creatinine POC Glucose Lactic Acid 9.20 H* 12.40 H* Crossmatch See Detail 09/30/17 09/30/17 09/30/17 01:05 02:01 03:04 WBC 25.4 H RBC 1.81 L Hgb 5.0 L* Hct 16.1 L* D RDW 18.9 H PT INR APTT POC ABG pH POC ABG pCO2 POC ABG pO2 BUN Creatinine POC Glucose Lactic Acid 13.70 H* 14.00 H* Crossmatch 09/30/17 09/30/17 09/30/17 05:01 05:10 05:36 WBC RBC Hgb Hct RDW PT INR APTT POC ABG pH 7.133 L POC ABG pCO2 26.6 L POC ABG pO2 389 H BUN Creatinine POC Glucose < 40 L 172 H Lactic Acid Crossmatch 09/30/17 09/30/17 09/30/17 06:38 06:38 06:56 WBC RBC Hgb Hct RDW PT 30.2 H INR 2.66 H APTT 48.3 H POC ABG pH POC ABG pCO2 POC ABG pO2 BUN Creatinine POC Glucose 167 H Lactic Acid 8.10 H* Crossmatch 09/30/17 09/30/17 09/30/17 12:22 12:22 12:45 WBC 26.0 H RBC 3.20 L Hgb 8.9 L D Hct 27.4 L D RDW 16.2 H PT INR APTT POC ABG pH POC ABG pCO2 POC ABG pO2 201 H BUN Creatinine POC Glucose Lactic Acid 5.00 H* Crossmatch - Diagnostic Findings Chest x-ray: image reviewed (clear, endotracheal tube in place) Assessment and Plan 62 y/o female with cardiac arrest, possibly secondary to hypoglycemia and severe anemia, now awake and alert with normal CXR. 1. Extubate 2. Needs q6hour H/H's 3. Suggest q4hour Blood sugars 4. HD per renal 5. Will continue ICU monitoring for now. If stable, will transfer out tomorrow. CCT 31 minutes.
[2017-09-30 15:04] LABS: Monocytes % (Manual) 0 % (0.0-7.3); Total Cells Counted 100
[2017-09-30 15:05] LABS: Anisocytosis 1+; Band Neutrophils # (Manual) 1.3 K/mm3; Basophils % (Manual) 0 % (0.0-1.8); Eosinophils % (Manual) 0 % (0.0-4.3)
[2017-09-30 15:06] LABS: Platelet Estimate Consistent w Auto
[2017-10-01] MEDS: ZOSYN/NS 2.25 GM/50ML 2.25 GM/50 ML BAG IV SCH (03:00)
[2017-10-01 03:56] LABS: Hematocrit 23.3 % (30.3-42.9); Hemoglobin 7.9 gm/dl (10.1-14.3); Mean Corpuscular HGB Conc 34 % (30-34); Mean Corpuscular Hemoglobin 28 pg (28-32); Mean Corpuscular Volume 83 fl (79-97); Platelet Count 220 K/mm3 (140-440); Red Blood Count 2.82 M/mm3 (3.65-5.03); Red Cell Distribution Width 16.3 % (13.2-15.2)
[2017-10-01 04:14] LABS: Alanine Aminotransferase 105 units/L (7-56); Albumin 3.1 g/dL (3.9-5); BUN/Creatinine Ratio 6; Blood Urea Nitrogen 54 mg/dL (7-17); Calcium 7.5 mg/dL (8.4-10.2); Hemolysis Index 3
[2017-10-01 04:33] LABS: Bilirubin,Direct < 0.2 mg/dL (0-0.2)
[2017-10-01 04:42] LABS: Band Neutrophils # (Manual) 2.9 K/mm3; Basophils % (Manual) 0 % (0.0-1.8); Eosinophils % (Manual) 0 % (0.0-4.3); Total Cells Counted 100
[2017-10-01 04:43] LABS: Dimorphic RBC Yes; Platelet Estimate Consistent w Auto
[2017-10-01] MEDS: APRESOLINE PO SCH ×3 (06:34→22:11)
--- NOTE | 2017-10-01 07:32 | Progress Note ---
Assessment and Plan 1. Bleeding AV fistula: Patient was found to have clotted right arm AVF. S/p angioplasty and stent placed. 2. ESRD: Plan to do HD tomorrow. 3. Hypotension: Improved, was on Levoped. Monitor BP. 4. Anemia: S/p 2 units of PRBC. Epogen. Will give a dose of IV Iron today. 5. Respiratory failure: S/p extubated. 6. S/p Cardiac arrest. Await transfer to the floor. Subjective Date of service: 10/01/17 Interval history: Patient is feeling better today. Objective - Vital Signs Vital signs: Vital Signs - 12hr 09/30/17 09/30/17 09/30/17 19:41 19:51 20:00 Pulse Rate 108 H 104 H Pulse Rate [ 100 H Apical] Pulse Rate [ 100 H From Monitor] Pulse Rate [ 100 H Left Dorsalis Pedis] Pulse Rate [ 100 H Left Radial] Pulse Rate [ 100 H Right Dorsalis Pedis] Pulse Rate [ 100 H Right Radial] Respiratory 17 13 26 H Rate Blood Pressure 109/68 115/72 O2 Sat by Pulse 81 L 81 L 99 Oximetry 09/30/17 09/30/17 09/30/17 20:01 20:11 20:21 Pulse Rate 92 H 87 94 H Pulse Rate [ Apical] Pulse Rate [ From Monitor] Pulse Rate [ Left Dorsalis Pedis] Pulse Rate [ Left Radial] Pulse Rate [ Right Dorsalis Pedis] Pulse Rate [ Right Radial] Respiratory 15 26 H 27 H Rate Blood Pressure 123/66 123/66 112/54 O2 Sat by Pulse Oximetry 09/30/17 09/30/17 09/30/17 20:29 20:30 20:41 Pulse Rate 81 97 H Pulse Rate [ Apical] Pulse Rate [ From Monitor] Pulse Rate [ Left Dorsalis Pedis] Pulse Rate [ Left Radial] Pulse Rate [ Right Dorsalis Pedis] Pulse Rate [ Right Radial] Respiratory 28 H 17 Rate Blood Pressure 115/58 115/58 O2 Sat by Pulse 98 98 99 Oximetry 09/30/17 09/30/17 09/30/17 20:57 21:01 21:07 Pulse Rate 90 93 H 89 Pulse Rate [ Apical] Pulse Rate [ From Monitor] Pulse Rate [ Left Dorsalis Pedis] Pulse Rate [ Left Radial] Pulse Rate [ Right Dorsalis Pedis] Pulse Rate [ Right Radial] Respiratory 18 17 Rate Blood Pressure 115/58 147/70 147/70 O2 Sat by Pulse 99 Oximetry 09/30/17 09/30/17 09/30/17 21:09 21:11 21:21 Pulse Rate 91 H 94 H 85 Pulse Rate [ Apical] Pulse Rate [ From Monitor] Pulse Rate [ Left Dorsalis Pedis] Pulse Rate [ Left Radial] Pulse Rate [ Right Dorsalis Pedis] Pulse Rate [ Right Radial] Respiratory 12 29 H Rate Blood Pressure 147/70 147/70 115/58 O2 Sat by Pulse 100 97 Oximetry 09/30/17 09/30/17 09/30/17 21:31 21:41 21:51 Pulse Rate 77 81 76 Pulse Rate [ Apical] Pulse Rate [ From Monitor] Pulse Rate [ Left Dorsalis Pedis] Pulse Rate [ Left Radial] Pulse Rate [ Right Dorsalis Pedis] Pulse Rate [ Right Radial] Respiratory 25 H 23 17 Rate Blood Pressure 115/58 115/58 115/58 O2 Sat by Pulse 97 97 96 Oximetry 09/30/17 09/30/17 09/30/17 22:00 22:11 22:21 Pulse Rate 79 78 81 Pulse Rate [ Apical] Pulse Rate [ From Monitor] Pulse Rate [ Left Dorsalis Pedis] Pulse Rate [ Left Radial] Pulse Rate [ Right Dorsalis Pedis] Pulse Rate [ Right Radial] Respiratory 19 32 H 32 H Rate Blood Pressure 113/55 113/55 113/55 O2 Sat by Pulse 99 99 98 Oximetry 09/30/17 09/30/17 09/30/17 22:31 22:41 22:51 Pulse Rate 76 83 85 Pulse Rate [ Apical] Pulse Rate [ From Monitor] Pulse Rate [ Left Dorsalis Pedis] Pulse Rate [ Left Radial] Pulse Rate [ Right Dorsalis Pedis] Pulse Rate [ Right Radial] Respiratory 24 25 H 26 H Rate Blood Pressure 113/55 113/55 113/55 O2 Sat by Pulse 100 100 99 Oximetry 09/30/17 10/01/17 10/01/17 23:00 00:00 00:21 Pulse Rate 76 78 82 Pulse Rate [ 78 Apical] Pulse Rate [ 78 From Monitor] Pulse Rate [ 78 Left Dorsalis Pedis] Pulse Rate [ 78 Left Radial] Pulse Rate [ 78 Right Dorsalis Pedis] Pulse Rate [ 78 Right Radial] Respiratory 25 H 25 H 18 Rate Blood Pressure 153/60 114/51 114/51 O2 Sat by Pulse 99 97 99 Oximetry 10/01/17 10/01/17 00:35 06:34 Pulse Rate 78 88 Pulse Rate [ Apical] Pulse Rate [ From Monitor] Pulse Rate [ Left Dorsalis Pedis] Pulse Rate [ Left Radial] Pulse Rate [ Right Dorsalis Pedis] Pulse Rate [ Right Radial] Respiratory 22 Rate Blood Pressure 114/51 125/62 O2 Sat by Pulse 99 Oximetry - General Appearance General appearance: well-developed, appears stated age, other (no distress) EENT: ATNC, PERRL, hearing intact, vision intact Neck: supple Respiratory: Present: Clear to Ascultation Cardiology: regular, S1S2, no murmurs Gastrointestinal: normoactive bowel sounds, no tenderness, no distended Integumentary: no rash, warm and dry Neurologic: no focal deficit, no asterixis, alert and oriented x3 Musculoskeletal: other (no edema, right arm AVF thrill noted) Psychiatric: mood/affect appropriate, cooperative - Lab 10/01/17 03:29 10/01/17 03:29 Most recent lab results Calcium 7.5 mg/dL (8.4-10.2) L D 10/01/17 03:29
[2017-10-01] MEDS ORDERED: FERRLECIT 125 MG in NACL 0.9% 100 ML IV ONE (07:48)
--- NOTE | 2017-10-01 10:20 | Progress Note ---
Assessment and Plan 62 y/o female with cardiac arrest, possibly secondary to hypoglycemia and severe anemia, now awake and alert with normal CXR. 1. Transfer out of ICU 2. Will sign off Subjective Date of service: 10/01/17 Interval history: No acute events. Stable pulm status. No further issues with breathing. Objective Vital Signs - 12hr 09/30/17 09/30/17 09/30/17 22:21 22:31 22:41 Pulse Rate 81 76 83 Pulse Rate [ Apical] Pulse Rate [ From Monitor] Pulse Rate [ Left Dorsalis Pedis] Pulse Rate [ Left Radial] Pulse Rate [ Right Dorsalis Pedis] Pulse Rate [ Right Radial] Respiratory 32 H 24 25 H Rate Blood Pressure 113/55 113/55 113/55 O2 Sat by Pulse 98 100 100 Oximetry 09/30/17 09/30/17 10/01/17 22:51 23:00 00:00 Pulse Rate 85 76 78 Pulse Rate [ 78 Apical] Pulse Rate [ 78 From Monitor] Pulse Rate [ 78 Left Dorsalis Pedis] Pulse Rate [ 78 Left Radial] Pulse Rate [ 78 Right Dorsalis Pedis] Pulse Rate [ 78 Right Radial] Respiratory 26 H 25 H 25 H Rate Blood Pressure 113/55 153/60 114/51 O2 Sat by Pulse 99 99 97 Oximetry 10/01/17 10/01/17 10/01/17 00:21 00:35 01:00 Pulse Rate 82 78 72 Pulse Rate [ Apical] Pulse Rate [ From Monitor] Pulse Rate [ Left Dorsalis Pedis] Pulse Rate [ Left Radial] Pulse Rate [ Right Dorsalis Pedis] Pulse Rate [ Right Radial] Respiratory 18 22 24 Rate Blood Pressure 114/51 114/51 111/48 O2 Sat by Pulse 99 99 96 Oximetry 10/01/17 10/01/17 10/01/17 02:00 03:00 04:00 Pulse Rate 71 74 71 Pulse Rate [ 89 Apical] Pulse Rate [ 89 From Monitor] Pulse Rate [ 89 Left Dorsalis Pedis] Pulse Rate [ 89 Left Radial] Pulse Rate [ 89 Right Dorsalis Pedis] Pulse Rate [ 89 Right Radial] Respiratory 14 19 22 Rate Blood Pressure 120/54 106/46 112/50 O2 Sat by Pulse 98 95 99 Oximetry 10/01/17 10/01/17 10/01/17 05:00 06:00 06:34 Pulse Rate 94 H 79 88 Pulse Rate [ Apical] Pulse Rate [ From Monitor] Pulse Rate [ Left Dorsalis Pedis] Pulse Rate [ Left Radial] Pulse Rate [ Right Dorsalis Pedis] Pulse Rate [ Right Radial] Respiratory 15 13 Rate Blood Pressure 117/68 112/79 125/62 O2 Sat by Pulse 98 98 Oximetry 10/01/17 10/01/17 10/01/17 07:00 08:01 09:00 Pulse Rate 78 86 77 Pulse Rate [ Apical] Pulse Rate [ From Monitor] Pulse Rate [ Left Dorsalis Pedis] Pulse Rate [ Left Radial] Pulse Rate [ Right Dorsalis Pedis] Pulse Rate [ Right Radial] Respiratory 20 17 22 Rate Blood Pressure 111/73 125/74 100/58 O2 Sat by Pulse 99 78 L 98 Oximetry Constitutional: alert, agitated, appears uncomfortable Eyes: icteric ENT: other (orally intubated and sedated) Neck: supple Effort: normal Ascultation: Bilateral: clear Percussion: Bilateral: not dull Cardiovascular: regular rate and rhythm Gastrointestinal: normoactive bowel sounds, soft CBC and BMP: 10/01/17 03:29 10/01/17 03:29 ABG, PT/INR, D-dimer: ABG POC ABG pH 7.379 (7.35-7.45) 09/30/17 12:45 POC ABG pCO2 35.2 (35-45) 09/30/17 12:45 POC ABG pO2 201 (80-105) H 09/30/17 12:45 POC ABG HCO3 20.7 09/30/17 12:45 POC ABG Total CO2 22 09/30/17 12:45 POC ABG O2 Sat 100 09/30/17 12:45 PT/INR, D-dimer PT 30.2 Sec. (12.2-14.9) H 09/30/17 06:38 INR 2.66 (0.87-1.13) H 09/30/17 06:38 Abnormal lab findings: Abnormal Labs 09/29/17 09/29/17 09/29/17 09:20 09:20 09:20 WBC 16.1 H RBC 2.73 L Hgb 7.5 L Hct 23.2 L RDW 18.0 H Seg Neuts % (Manual) Lymphocytes % (Manual) Seg Neutrophils # Man Lymphocytes # (Manual) PT INR APTT 22.1 L POC ABG pH POC ABG pCO2 POC ABG pO2 Chloride Carbon Dioxide BUN 22 H Creatinine 7.4 H POC Glucose Lactic Acid Calcium AST ALT Total Protein Albumin Crossmatch 09/29/17 09/29/17 09/29/17 09:20 20:04 23:20 WBC RBC Hgb Hct RDW Seg Neuts % (Manual) Lymphocytes % (Manual) Seg Neutrophils # Man Lymphocytes # (Manual) PT INR APTT POC ABG pH POC ABG pCO2 POC ABG pO2 Chloride Carbon Dioxide BUN Creatinine POC Glucose Lactic Acid 9.20 H* 12.40 H* Calcium AST ALT Total Protein Albumin Crossmatch See Detail 09/30/17 09/30/17 09/30/17 01:05 02:01 03:04 WBC 25.4 H RBC 1.81 L Hgb 5.0 L* Hct 16.1 L* D RDW 18.9 H Seg Neuts % (Manual) Lymphocytes % (Manual) Seg Neutrophils # Man Lymphocytes # (Manual) PT INR APTT POC ABG pH POC ABG pCO2 POC ABG pO2 Chloride Carbon Dioxide BUN Creatinine POC Glucose Lactic Acid 13.70 H* 14.00 H* Calcium AST ALT Total Protein Albumin Crossmatch 09/30/17 09/30/17 09/30/17 05:01 05:10 05:36 WBC RBC Hgb Hct RDW Seg Neuts % (Manual) Lymphocytes % (Manual) Seg Neutrophils # Man Lymphocytes # (Manual) PT INR APTT POC ABG pH 7.133 L POC ABG pCO2 26.6 L POC ABG pO2 389 H Chloride Carbon Dioxide BUN Creatinine POC Glucose < 40 L 172 H Lactic Acid Calcium AST ALT Total Protein Albumin Crossmatch 09/30/17 09/30/17 09/30/17 06:38 06:38 06:56 WBC RBC Hgb Hct RDW Seg Neuts % (Manual) Lymphocytes % (Manual) Seg Neutrophils # Man Lymphocytes # (Manual) PT 30.2 H INR 2.66 H APTT 48.3 H POC ABG pH POC ABG pCO2 POC ABG pO2 Chloride Carbon Dioxide BUN Creatinine POC Glucose 167 H Lactic Acid 8.10 H* Calcium AST ALT Total Protein Albumin Crossmatch 09/30/17 09/30/17 09/30/17 12:22 12:22 12:45 WBC 26.0 H RBC 3.20 L Hgb 8.9 L D Hct 27.4 L D RDW 16.2 H Seg Neuts % (Manual) 80.0 H Lymphocytes % (Manual) Seg Neutrophils # Man 20.8 H Lymphocytes # (Manual) PT INR APTT POC ABG pH POC ABG pCO2 POC ABG pO2 201 H Chloride Carbon Dioxide BUN Creatinine POC Glucose Lactic Acid 5.00 H* Calcium AST ALT Total Protein Albumin Crossmatch 09/30/17 10/01/17 10/01/17 15:26 03:29 03:29 WBC 22.3 H RBC 2.82 L Hgb 7.9 L Hct 23.3 L RDW 16.3 H Seg Neuts % (Manual) 80.0 H Lymphocytes % (Manual) 5.0 L Seg Neutrophils # Man 17.8 H Lymphocytes # (Manual) 1.1 L PT INR APTT POC ABG pH POC ABG pCO2 POC ABG pO2 Chloride 95.6 L Carbon Dioxide 20 L BUN 54 H Creatinine 8.8 H POC Glucose Lactic Acid 5.70 H* Calcium 7.5 L D AST 319 H ALT 105 H Total Protein 4.8 L Albumin 3.1 L Crossmatch
[2017-10-01] MEDS: PROTONIX PO SCH (11:03)
[2017-10-01] MEDS: NORMODYNE PO SCH ×2 (11:04→22:10)
[2017-10-01] MEDS: THERAGRAN-M Tab PO SCH (11:05)
[2017-10-01] MEDS: CARDURA PO SCH ×2 (11:05→22:12)
[2017-10-01] MEDS: ZESTRIL PO SCH ×2 (11:05→22:12)
[2017-10-01] MEDS: PROCARDIA XL PO SCH (11:06)
--- NOTE | 2017-10-01 12:11 | Progress Note ---
Assessment and Plan Assessment and plan: --Cardiac Arrest s/p CPR Patient is extubated, alert awake oriented 3, no neurologic deficit Ambulate as tolerated, physical therapy if needed --Acute hypoxic respiratory failure; status post extubation Oxygen, titrate O2 sats more than 90% nebulizers, pulmonary following --Shock; possible septic shock, currently off pressors --hypertension; continue current antihypertensives and when necessary medications --Sepsis; on empiric antibiotics, cultures cultures negative to date ID evaluation if needed --Severe anemia; requiring 2 units of PRBC, Hb today 7.9 --End-stage renal disease; on hemodialysis FMW, nephrology following --Malfunctioning of her right AV fistula; status post vascular surgical procedure --DVT prophylaxis; SCD --Full CODE STATUS Ambulate as tolerated, physical therapy as needed Patient is stable to be transferred out of ICU to telemetry History Interval history: Patient seen and evaluated medical records reviewed Patient was extubated , Patient feels better Alert Awake oriented 3 , not in acute distress No new complaints Vital signs reviewed Hospitalist Physical - Constitutional Vitals: Temp Pulse Resp BP Pulse Ox 97 F L 76 17 133/63 100 10/01/17 08:00 10/01/17 11:04 10/01/17 11:00 10/01/17 11:05 10/01/17 11:00 General appearance: Present: no acute distress, well-nourished - EENT Eyes: Present: PERRL, EOM intact - Neck Neck: Present: supple, normal ROM - Respiratory Respiratory effort: normal Respiratory: bilateral: diminished, rales, negative: rhonchi, wheezing - Cardiovascular Rhythm: regular Heart Sounds: Present: S1 & S2 - Extremities Extremities: no ischemia, No edema - Abdominal General gastrointestinal: soft, non-tender, non-distended, normal bowel sounds - Integumentary Integumentary: Present: clear, warm - Psychiatric Psychiatric: appropriate mood/affect, cooperative - Neurologic Neurologic: CNII-XII intact, moves all extremities Results - Labs CBC & Chem 7: 10/01/17 03:29 10/01/17 03:29 Labs: Laboratory Last Values WBC 22.3 K/mm3 (4.5-11.0) H 10/01/17 03:29 RBC 2.82 M/mm3 (3.65-5.03) L 10/01/17 03:29 Hgb 7.9 gm/dl (10.1-14.3) L 10/01/17 03:29 Hct 23.3 % (30.3-42.9) L 10/01/17 03:29 MCV 83 fl (79-97) 10/01/17 03:29 MCH 28 pg (28-32) 10/01/17 03:29 MCHC 34 % (30-34) 10/01/17 03:29 RDW 16.3 % (13.2-15.2) H 10/01/17 03:29 Plt Count 220 K/mm3 (140-440) 10/01/17 03:29 Lymph % (Auto) [employer] Journalist 09/29/17 09:20 [place] % (Auto) Magazine Journalist 09/29/17 09:20 Eos % (Auto) Magazine Journalist 09/29/17 09:20 Baso % (Auto) Magazine Journalist 09/29/17 09:20 Lymph # Magazine Journalist 09/29/17 09:20 [place] # Magazine Journalist 09/29/17 09:20 Eos # Magazine Journalist 09/29/17 09:20 Baso # Magazine Journalist 09/29/17 09:20 Add Manual Diff Complete 10/01/17 03:29 Total Counted 100 10/01/17 03:29 Seg Neutrophils % Magazine Journalist 09/29/17 09:20 Seg Neuts % (Manual) 80.0 % (40.0-70.0) H 10/01/17 03:29 Band Neutrophils % 13.0 % 10/01/17 03:29 Lymphocytes % (Manual) 5.0 % (13.4-35.0) L 10/01/17 03:29 Reactive Lymphs % (Man) 0 % 10/01/17 03:29 Monocytes % (Manual) 2.0 % (0.0-7.3) 10/01/17 03:29 Eosinophils % (Manual) 0 % (0.0-4.3) 10/01/17 03:29 Basophils % (Manual) 0 % (0.0-1.8) 10/01/17 03:29 Metamyelocytes % 0 % 10/01/17 03:29 Myelocytes % 0 % 10/01/17 03:29 Promyelocytes % 0 % 10/01/17 03:29 Blast Cells % 0 % 10/01/17 03:29 Nucleated RBC % Not Reportable 10/01/17 03:29 Seg Neutrophils # Magazine Journalist 09/29/17 09:20 Seg Neutrophils # Man 17.8 K/mm3 (1.8-7.7) H 10/01/17 03:29 Band Neutrophils # 2.9 K/mm3 10/01/17 03:29 Lymphocytes # (Manual) 1.1 K/mm3 (1.2-5.4) L 10/01/17 03:29 Abs React Lymphs (Man) 0.0 K/mm3 10/01/17 03:29 Monocytes # (Manual) 0.4 K/mm3 (0.0-0.8) 10/01/17 03:29 Eosinophils # (Manual) 0.0 K/mm3 (0.0-0.4) 10/01/17 03:29 Basophils # (Manual) 0.0 K/mm3 (0.0-0.1) 10/01/17 03:29 Metamyelocytes # 0.0 K/mm3 10/01/17 03:29 Myelocytes # 0.0 K/mm3 10/01/17 03:29 Promyelocytes # 0.0 K/mm3 10/01/17 03:29 Blast Cells # 0.0 K/mm3 10/01/17 03:29 WBC Morphology Not Reportable 10/01/17 03:29 Hypersegmented Neuts Not Reportable 10/01/17 03:29 Hyposegmented Neuts Not Reportable 10/01/17 03:29 Hypogranular Neuts Not Reportable 10/01/17 03:29 Smudge Cells Not Reportable 10/01/17 03:29 Toxic Granulation Not Reportable 10/01/17 03:29 Toxic Vacuolation Not Reportable 10/01/17 03:29 Dohle Bodies Not Reportable 10/01/17 03:29 Pelger-Huet Anomaly Not Reportable 10/01/17 03:29 Leo Rods Not Reportable 10/01/17 03:29 Platelet Estimate Consistent w auto 10/01/17 03:29 Clumped Platelets Not Reportable 10/01/17 03:29 Plt Clumps, EDTA Not Reportable 10/01/17 03:29 Large Platelets Not Reportable 10/01/17 03:29 Giant Platelets Not Reportable 10/01/17 03:29 Platelet Satelliting Not Reportable 10/01/17 03:29 Plt Morphology Comment Not Reportable 10/01/17 03:29 RBC Morphology Not Reportable 10/01/17 03:29 Dimorphic RBCs Yes 10/01/17 03:29 Polychromasia Not Reportable 10/01/17 03:29 Hypochromasia Not Reportable 10/01/17 03:29 Poikilocytosis Not Reportable 10/01/17 03:29 Anisocytosis Not Reportable 10/01/17 03:29 Microcytosis Not Reportable 10/01/17 03:29 Macrocytosis Not Reportable 10/01/17 03:29 Spherocytes Not Reportable 10/01/17 03:29 Pappenheimer Bodies Not Reportable 10/01/17 03:29 Sickle Cells Not Reportable 10/01/17 03:29 Target Cells Not Reportable 10/01/17 03:29 Tear Drop Cells Not Reportable 10/01/17 03:29 Ovalocytes Not Reportable 10/01/17 03:29 Helmet Cells Not Reportable 10/01/17 03:29 [place] Bodies Not Reportable 10/01/17 03:29 [place] Rings Not Reportable 10/01/17 03:29 [place] Cells Not Reportable 10/01/17 03:29 Bite Cells Not Reportable 10/01/17 03:29 Crenated Cell Not Reportable 10/01/17 03:29 Elliptocytes Not Reportable 10/01/17 03:29 Acanthocytes (Spur) Not Reportable 10/01/17 03:29 Rouleaux Not Reportable 10/01/17 03:29 Hemoglobin C Crystals Not Reportable 10/01/17 03:29 Schistocytes Not Reportable 10/01/17 03:29 Malaria parasites Not Reportable 10/01/17 03:29 Edwar Bodies Not Reportable 10/01/17 03:29 Hem Pathologist Commnt No 10/01/17 03:29 PT 30.2 Sec. (12.2-14.9) H 09/30/17 06:38 INR 2.66 (0.87-1.13) H 09/30/17 06:38 APTT 48.3 Sec. (24.2-36.6) H 09/30/17 06:38 POC ABG pH 7.379 (7.35-7.45) 09/30/17 12:45 POC ABG pCO2 35.2 (35-45) 09/30/17 12:45 POC ABG pO2 201 (80-105) H 09/30/17 12:45 POC ABG HCO3 20.7 09/30/17 12:45 POC ABG Total CO2 22 09/30/17 12:45 POC ABG O2 Sat 100 09/30/17 12:45 POC ABG Base Excess -4 09/30/17 12:45 FiO2 50 % 09/30/17 12:45 Sodium 138 mmol/L (137-145) 10/01/17 03:29 Potassium 4.2 mmol/L (3.6-5.0) 10/01/17 03:29 Chloride 95.6 mmol/L (98-107) L 10/01/17 03:29 Carbon Dioxide 20 mmol/L (22-30) L 10/01/17 03:29 Anion Gap 27 mmol/L 10/01/17 03:29 BUN 54 mg/dL (7-17) H 10/01/17 03:29 Creatinine 8.8 mg/dL (0.7-1.2) H 10/01/17 03:29 Estimated GFR 6 ml/min 10/01/17 03:29 BUN/Creatinine Ratio 6 % 10/01/17 03:29 Glucose 97 mg/dL (65-100) 10/01/17 03:29 POC Glucose 98 (70-105) 10/01/17 06:43 Lactic Acid 5.70 mmol/L (0.7-2.0) H* 09/30/17 15:26 Calcium 7.5 mg/dL (8.4-10.2) L D 10/01/17 03:29 Total Bilirubin 0.20 mg/dL (0.1-1.2) 10/01/17 03:29 Direct Bilirubin < 0.2 mg/dL (0-0.2) 10/01/17 03:29 Indirect Bilirubin 0.0 mg/dL 10/01/17 03:29 AST 319 units/L (5-40) H 10/01/17 03:29 ALT 105 units/L (7-56) H 10/01/17 03:29 Alkaline Phosphatase 101 units/L (35-129) 10/01/17 03:29 Total Protein 4.8 g/dL (6.3-8.2) L 10/01/17 03:29 Albumin 3.1 g/dL (3.9-5) L 10/01/17 03:29 Albumin/Globulin Ratio 1.8 % 10/01/17 03:29 Blood Type AB POSITIVE 09/29/17 09:20 Antibody Screen Negative 09/29/17 09:20 Crossmatch See Detail 09/29/17 09:20
[2017-10-01] MEDS: TYLENOL PO PRN ×2 (12:34→22:12)
[2017-10-02] MEDS: ZOSYN/NS 2.25 GM/50ML 2.25 GM/50 ML BAG IV SCH ×4 (03:50→23:00)
[2017-10-02 05:24] LABS: Basophils % (Auto) 0.3 % (0.0-1.8); Eosinophils # (Auto) 0.4 K/mm3 (0.0-0.4); Eosinophils % (Auto) 2.6 % (0.0-4.3); Hematocrit 20.8 % (30.3-42.9); Lymphocytes # (Auto) 1.6 K/mm3 (1.2-5.4); Lymphocytes % (Auto) 10.4 % (13.4-35.0); Mean Corpuscular HGB Conc 34 % (30-34); Mean Corpuscular Hemoglobin 29 pg (28-32); Mean Corpuscular Volume 85 fl (79-97); Monocytes # (Auto) 1.1 K/mm3 (0.0-0.8); Platelet Count 201 K/mm3 (140-440); Red Blood Count 2.45 M/mm3 (3.65-5.03); Red Cell Distribution Width 16.8 % (13.2-15.2)
[2017-10-02] MEDS: APRESOLINE PO SCH ×4 (06:22→22:00)
[2017-10-02] MEDS: TYLENOL PO PRN ×2 (06:23→11:06)
--- NOTE | 2017-10-02 07:26 | Progress Note ---
Assessment and Plan 1. Bleeding AV fistula: Patient was also found to have clotted right arm AVF. S/p angioplasty and stent placed. 2. ESRD: Continue HD as planned. 3. Hypotension: Improved. Monitor BP. 4. Anemia: S/p 2 units of PRBC. Epogen and IV Iron today. 5. Respiratory failure: S/p extubated. 6. S/p Cardiac arrest. Subjective Date of service: 10/02/17 Interval history: Patient was seen and examined while on hemodialysis. C/o rib pain from chest compression. Objective - Vital Signs Vital signs: Vital Signs - 12hr 10/01/17 10/02/17 10/02/17 20:05 00:11 06:23 Temperature 98.9 F Pulse Rate 94 H 77 Respiratory 20 20 Rate Blood Pressure 115/49 129/64 O2 Sat by Pulse 98 98 Oximetry - General Appearance General appearance: well-developed, appears stated age, other (no distress) EENT: ATNC, PERRL Neck: supple Respiratory: Present: Clear to Ascultation Cardiology: regular, S1S2, no murmurs Gastrointestinal: normoactive bowel sounds, no tenderness, no distended Integumentary: no rash, warm and dry Neurologic: no focal deficit, no asterixis, alert and oriented x3 Musculoskeletal: other (no edema, right arm AVF) Psychiatric: mood/affect appropriate, cooperative - Lab 10/03/17 06:34 10/03/17 06:34 Most recent lab results Calcium 7.5 mg/dL (8.4-10.2) L D 10/01/17 03:29
[2017-10-02] MEDS: NORMODYNE PO SCH ×4 (10:07→22:00)
[2017-10-02] MEDS: CARDURA PO SCH ×2 (10:07→21:21)
[2017-10-02] MEDS: PROCARDIA XL PO SCH ×2 (10:07→17:55)
[2017-10-02] MEDS: THERAGRAN-M Tab PO SCH ×2 (10:08→17:55)
[2017-10-02] MEDS: PROTONIX PO SCH ×2 (10:08→17:55)
[2017-10-02] MEDS: ZESTRIL PO SCH ×2 (10:08→21:20)
[2017-10-02] MEDS ORDERED: NACL 0.9 (PRIMING MACHINE ONLY DIALYSIS) MC ONE (11:04)
--- NOTE | 2017-10-02 12:56 | Progress Note ---
Assessment and Plan Assessment and plan: --Cardiac Arrest s/p CPR Patient is extubated, alert awake oriented 3, no neurologic deficit --Acute hypoxic respiratory failure; status post extubation Oxygen, titrate O2 sats more than 90% nebulizers, pulmonary following --Shock; possible septic shock, currently off pressors --hypertension; continue current antihypertensives and when necessary medications --Sepsis; sputum cultures positive for staph aureus Contact isolation and continue empiric antibiotics, cultures negative to date ID evaluation if needed --Severe anemia; requiring 2 units of PRBC, Hb is dropping today to 7 No evidence of external bleeding --End-stage renal disease; on hemodialysis FMW, nephrology following --Malfunctioning of her right AV fistula; status post vascular surgical procedure --DVT prophylaxis; SCD --Full CODE STATUS Disposition; follow cultures sensitivities, ID recommendations Possible discharge in 1-2 days if stable History Interval history: Patient seen and examined medical records reviewed No new events reported by the nursing staff Received hemodialysis today Patient has no new complaints Sputum cultures staph aureus Alert awake oriented 3 not in acute distress Vital signs reviewed Hospitalist Physical - Constitutional Vitals: Temp Pulse Resp BP Pulse Ox 98.2 F 79 18 156/80 100 10/02/17 11:00 10/02/17 12:00 10/02/17 11:00 10/02/17 12:00 10/02/17 08:40 General appearance: Present: no acute distress, well-nourished - EENT Eyes: Present: PERRL, EOM intact - Neck Neck: Present: supple, normal ROM - Respiratory Respiratory effort: normal Respiratory: bilateral: diminished, rales, negative: rhonchi, wheezing - Cardiovascular Rhythm: regular Heart Sounds: Present: S1 & S2 - Extremities Extremities: no ischemia, No edema - Abdominal General gastrointestinal: soft, non-tender, non-distended, normal bowel sounds - Integumentary Integumentary: Present: clear, warm - Psychiatric Psychiatric: appropriate mood/affect, cooperative - Neurologic Neurologic: CNII-XII intact Results - Labs CBC & Chem 7: 10/02/17 04:51 10/01/17 03:29 Labs: Laboratory Last Values WBC 15.8 K/mm3 (4.5-11.0) H 10/02/17 04:51 RBC 2.45 M/mm3 (3.65-5.03) L 10/02/17 04:51 Hgb 7.0 gm/dl (10.1-14.3) L 10/02/17 04:51 Hct 20.8 % (30.3-42.9) L 10/02/17 04:51 MCV 85 fl (79-97) 10/02/17 04:51 MCH 29 pg (28-32) 10/02/17 04:51 MCHC 34 % (30-34) 10/02/17 04:51 RDW 16.8 % (13.2-15.2) H 10/02/17 04:51 Plt Count 201 K/mm3 (140-440) 10/02/17 04:51 Lymph % (Auto) 10.4 % (13.4-35.0) L 10/02/17 04:51 [place] % (Auto) 7.0 % (0.0-7.3) 10/02/17 04:51 Eos % (Auto) 2.6 % (0.0-4.3) 10/02/17 04:51 Baso % (Auto) 0.3 % (0.0-1.8) 10/02/17 04:51 Lymph # 1.6 K/mm3 (1.2-5.4) 10/02/17 04:51 [place] # 1.1 K/mm3 (0.0-0.8) H 10/02/17 04:51 Eos # 0.4 K/mm3 (0.0-0.4) 10/02/17 04:51 Baso # 0.0 K/mm3 (0.0-0.1) 10/02/17 04:51 Add Manual Diff Complete 10/01/17 03:29 Total Counted 100 10/01/17 03:29 Seg Neutrophils % 79.7 % (40.0-70.0) H 10/02/17 04:51 Seg Neuts % (Manual) 80.0 % (40.0-70.0) H 10/01/17 03:29 Band Neutrophils % 13.0 % 10/01/17 03:29 Lymphocytes % (Manual) 5.0 % (13.4-35.0) L 10/01/17 03:29 Reactive Lymphs % (Man) 0 % 10/01/17 03:29 Monocytes % (Manual) 2.0 % (0.0-7.3) 10/01/17 03:29 Eosinophils % (Manual) 0 % (0.0-4.3) 10/01/17 03:29 Basophils % (Manual) 0 % (0.0-1.8) 10/01/17 03:29 Metamyelocytes % 0 % 10/01/17 03:29 Myelocytes % 0 % 10/01/17 03:29 Promyelocytes % 0 % 10/01/17 03:29 Blast Cells % 0 % 10/01/17 03:29 Nucleated RBC % Not Reportable 10/01/17 03:29 Seg Neutrophils # 12.6 K/mm3 (1.8-7.7) H 10/02/17 04:51 Seg Neutrophils # Man 17.8 K/mm3 (1.8-7.7) H 10/01/17 03:29 Band Neutrophils # 2.9 K/mm3 10/01/17 03:29 Lymphocytes # (Manual) 1.1 K/mm3 (1.2-5.4) L 10/01/17 03:29 Abs React Lymphs (Man) 0.0 K/mm3 10/01/17 03:29 Monocytes # (Manual) 0.4 K/mm3 (0.0-0.8) 10/01/17 03:29 Eosinophils # (Manual) 0.0 K/mm3 (0.0-0.4) 10/01/17 03:29 Basophils # (Manual) 0.0 K/mm3 (0.0-0.1) 10/01/17 03:29 Metamyelocytes # 0.0 K/mm3 10/01/17 03:29 Myelocytes # 0.0 K/mm3 10/01/17 03:29 Promyelocytes # 0.0 K/mm3 10/01/17 03:29 Blast Cells # 0.0 K/mm3 10/01/17 03:29 WBC Morphology Not Reportable 10/01/17 03:29 Hypersegmented Neuts Not Reportable 10/01/17 03:29 Hyposegmented Neuts Not Reportable 10/01/17 03:29 Hypogranular Neuts Not Reportable 10/01/17 03:29 Smudge Cells Not Reportable 10/01/17 03:29 Toxic Granulation Not Reportable 10/01/17 03:29 Toxic Vacuolation Not Reportable 10/01/17 03:29 Dohle Bodies Not Reportable 10/01/17 03:29 Pelger-Huet Anomaly Not Reportable 10/01/17 03:29 Leo Rods Not Reportable 10/01/17 03:29 Platelet Estimate Consistent w auto 10/01/17 03:29 Clumped Platelets Not Reportable 10/01/17 03:29 Plt Clumps, EDTA Not Reportable 10/01/17 03:29 Large Platelets Not Reportable 10/01/17 03:29 Giant Platelets Not Reportable 10/01/17 03:29 Platelet Satelliting Not Reportable 10/01/17 03:29 Plt Morphology Comment Not Reportable 10/01/17 03:29 RBC Morphology Not Reportable 10/01/17 03:29 Dimorphic RBCs Yes 10/01/17 03:29 Polychromasia Not Reportable 10/01/17 03:29 Hypochromasia Not Reportable 10/01/17 03:29 Poikilocytosis Not Reportable 10/01/17 03:29 Anisocytosis Not Reportable 10/01/17 03:29 Microcytosis Not Reportable 10/01/17 03:29 Macrocytosis Not Reportable 10/01/17 03:29 Spherocytes Not Reportable 10/01/17 03:29 Pappenheimer Bodies Not Reportable 10/01/17 03:29 Sickle Cells Not Reportable 10/01/17 03:29 Target Cells Not Reportable 10/01/17 03:29 Tear Drop Cells Not Reportable 10/01/17 03:29 Ovalocytes Not Reportable 10/01/17 03:29 Helmet Cells Not Reportable 10/01/17 03:29 [place] Bodies Not Reportable 10/01/17 03:29 [place] Rings Not Reportable 10/01/17 03:29 [place] Cells Not Reportable 10/01/17 03:29 Bite Cells Not Reportable 10/01/17 03:29 Crenated Cell Not Reportable 10/01/17 03:29 Elliptocytes Not Reportable 10/01/17 03:29 Acanthocytes (Spur) Not Reportable 10/01/17 03:29 Rouleaux Not Reportable 10/01/17 03:29 Hemoglobin C Crystals Not Reportable 10/01/17 03:29 Schistocytes Not Reportable 10/01/17 03:29 Malaria parasites Not Reportable 10/01/17 03:29 Edwar Bodies Not Reportable 10/01/17 03:29 Hem Pathologist Commnt No 10/01/17 03:29 PT 30.2 Sec. (12.2-14.9) H 09/30/17 06:38 INR 2.66 (0.87-1.13) H 09/30/17 06:38 APTT 48.3 Sec. (24.2-36.6) H 09/30/17 06:38 POC ABG pH 7.379 (7.35-7.45) 09/30/17 12:45 POC ABG pCO2 35.2 (35-45) 09/30/17 12:45 POC ABG pO2 201 (80-105) H 09/30/17 12:45 POC ABG HCO3 20.7 09/30/17 12:45 POC ABG Total CO2 22 09/30/17 12:45 POC ABG O2 Sat 100 09/30/17 12:45 POC ABG Base Excess -4 09/30/17 12:45 FiO2 50 % 09/30/17 12:45 Sodium 138 mmol/L (137-145) 10/01/17 03:29 Potassium 4.2 mmol/L (3.6-5.0) 10/01/17 03:29 Chloride 95.6 mmol/L (98-107) L 10/01/17 03:29 Carbon Dioxide 20 mmol/L (22-30) L 10/01/17 03:29 Anion Gap 27 mmol/L 10/01/17 03:29 BUN 54 mg/dL (7-17) H 10/01/17 03:29 Creatinine 8.8 mg/dL (0.7-1.2) H 10/01/17 03:29 Estimated GFR 6 ml/min 10/01/17 03:29 BUN/Creatinine Ratio 6 % 10/01/17 03:29 Glucose 97 mg/dL (65-100) 10/01/17 03:29 POC Glucose 98 (70-105) 10/01/17 06:43 Lactic Acid 5.70 mmol/L (0.7-2.0) H* 09/30/17 15:26 Calcium 7.5 mg/dL (8.4-10.2) L D 10/01/17 03:29 Total Bilirubin 0.20 mg/dL (0.1-1.2) 10/01/17 03:29 Direct Bilirubin < 0.2 mg/dL (0-0.2) 10/01/17 03:29 Indirect Bilirubin 0.0 mg/dL 10/01/17 03:29 AST 319 units/L (5-40) H 10/01/17 03:29 ALT 105 units/L (7-56) H 10/01/17 03:29 Alkaline Phosphatase 101 units/L (35-129) 10/01/17 03:29 Total Protein 4.8 g/dL (6.3-8.2) L 10/01/17 03:29 Albumin 3.1 g/dL (3.9-5) L 10/01/17 03:29 Albumin/Globulin Ratio 1.8 % 10/01/17 03:29 Blood Type AB POSITIVE 09/29/17 09:20 Antibody Screen Negative 09/29/17 09:20 Crossmatch See Detail 09/29/17 09:20
[2017-10-02] MEDS ORDERED: FERRLECIT 125 MG in NACL 0.9% 100 ML IV ONE (13:30)
[2017-10-02] MEDS: PERCOCET 5/325 PO PRN ×2 (13:33→20:17)
[2017-10-02] MEDS ORDERED: VANCOMYCIN/0.45 NS 1 GM/250 ML 1 GM/250 ML BAG IV SCH (21:00)
[2017-10-02] MEDS ORDERED: VANCOMYCIN VIAL 1,000 MG in NACL 0.9% 100 ML IV SCH (21:00)
[2017-10-02] MEDS ORDERED: VANCOMYCIN PHARMACY TO DOSE IV SCH (21:00)
[2017-10-03] MEDS: PERCOCET 5/325 PO PRN ×3 (02:25→18:22)
[2017-10-03] MEDS: ZOSYN/NS 2.25 GM/50ML 2.25 GM/50 ML BAG IV SCH (06:21)
[2017-10-03] MEDS: APRESOLINE PO SCH ×3 (06:23→21:51)
[2017-10-03 07:14] LABS: Hemoglobin 7.2 gm/dl (10.1-14.3); Mean Corpuscular HGB Conc 33 % (30-34); Mean Corpuscular Hemoglobin 29 pg (28-32); Mean Corpuscular Volume 87 fl (79-97); Platelet Count 240 K/mm3 (140-440); Red Blood Count 2.53 M/mm3 (3.65-5.03)
[2017-10-03 07:25] LABS: Calcium 8.3 mg/dL (8.4-10.2)
--- NOTE | 2017-10-03 08:23 | Progress Note ---
Assessment and Plan 1. ESRD: Continue HD three times a week, MWF schedule. 2. Bleeding AV fistula: Patient was also found to have clotted right arm AVF. S/p angioplasty and stent placed. 3. Anemia: S/p 2 units of PRBC, Epogen and IV Iron. Hb is low but stable. 4. Respiratory failure: S/p extubated. 5. S/p Cardiac arrest. 6. Hypotension: Improved. Monitor BP. 7. SIRS: On Vancomycin. Followed by ID. Subjective Date of service: 10/03/17 Interval history: Patient is feeling better today. Objective - Vital Signs Vital signs: Vital Signs - 12hr 10/02/17 10/02/17 10/02/17 20:43 20:46 23:23 Temperature 98.4 F Pulse Rate 83 82 Pulse Rate [ 89 Left Radial] Respiratory 16 20 Rate Blood Pressure 109/50 122/65 O2 Sat by Pulse 95 97 Oximetry 10/03/17 10/03/17 10/03/17 03:35 04:34 04:35 Temperature 98.2 F Pulse Rate 81 80 81 Pulse Rate [ Left Radial] Respiratory 20 Rate Blood Pressure 115/49 O2 Sat by Pulse 95 95 Oximetry 10/03/17 10/03/17 06:23 07:31 Temperature 98.1 F Pulse Rate 81 84 Pulse Rate [ Left Radial] Respiratory 20 Rate Blood Pressure 132/62 O2 Sat by Pulse 97 Oximetry - General Appearance General appearance: well-developed, appears stated age, other (no distress) EENT: ATNC, PERRL, hearing intact, vision intact Neck: supple Respiratory: Present: Clear to Ascultation Cardiology: regular, S1S2, no murmurs Gastrointestinal: normoactive bowel sounds, no tenderness Integumentary: no rash, warm and dry Neurologic: no focal deficit, no asterixis, alert and oriented x3 Musculoskeletal: other (no edema, right arm AVF) Psychiatric: mood/affect appropriate, cooperative - Lab 10/03/17 06:34 10/03/17 06:34 Most recent lab results Calcium 8.3 mg/dL (8.4-10.2) L 10/03/17 06:34 Magnesium 2.00 mg/dL (1.7-2.3) 10/03/17 06:34
[2017-10-03] MEDS ORDERED: K-DUR PO NR (08:30)
[2017-10-03 09:27] LABS: Anisocytosis 2+; Basophils % (Manual) 0 % (0.0-1.8); Myelocytes # (Manual) 0.1 K/mm3; Total Cells Counted 100
[2017-10-03 09:28] LABS: Hypochromasia 1+; Macrocytosis 1+
[2017-10-03 09:29] LABS: Platelet Estimate Consistent w Auto
[2017-10-03] MEDS: PROTONIX PO SCH (09:35)
[2017-10-03] MEDS: THERAGRAN-M Tab PO SCH (09:35)
[2017-10-03] MEDS: PROCARDIA XL PO SCH (09:35)
[2017-10-03] MEDS: NORMODYNE PO SCH ×2 (09:35→21:50)
[2017-10-03] MEDS: ZESTRIL PO SCH (09:35)
[2017-10-03] MEDS: CARDURA PO SCH ×2 (09:35→21:51)
--- NOTE | 2017-10-03 10:16 | Progress Note ---
Assessment and Plan Assessment: 1) SIRS: not present on admission, manifested by hypothermia, tachycardia, leukocytosis, increased lactate. Leukocytosis resolved. Etiology most likely PEA arrest s/p CPR. 2) PEA arrest on 09/30 s/p CPR: etiology ? hypoglycemia ? severe anemia 3) Resp failure: post arrest-resolved 4) Staph aureus in sputum ? colonizer. CXR was negative 5) Malfunction AVF s/p fistulogram with intervention on 09/29 6) ESRD on HD 7) Severe anemia: ? from bleeding AVF 8) Elevated LFTs: ?shock liver from arrest Plan: -follow-up respiratory cx ID and KYM-growing Staph -repeat CXR -contact isolation until MRSA is r/o -monitor LFTs -continue vanco -stop zosyn Thank you for your consultation, will follow up with you. Deyanira Zepeda MD Infectious Diseases Specialist [facility] M [phone] O [phone] Subjective Date of service: 10/03/17 Principal diagnosis: Staph in sputum, lactic acidosis, leukocytosis Interval history: 62 years old female with history of HTN, ESRD on HD(M,W,F); admitted on 09/30/17 due to bleeding from her right arm AVF. She denies any fever, chills, nausea, vomiting, abdominal pain, respiratory symptoms including cough, chest congestion , runny nose. Patient reports that she developed a dry cough last the last 2 days while admitted. She denies history of previous staph infections. She denies chest pain. In the ED, initial temperature was 97.4, heart rate 73, O2 sat 96, blood pressure 125/76. Initial white count was 16,000 which then went to 25,000. Initial hemoglobin was 7.5 with 10 125. Nicolas Krysten. 7.4. Potassium was 12. Chest x-ray was unremarkable. She underwent right fistulogram with intervention on 09/29. BY 09/30 vivian dunham was called on this patient as the patient became hypoxic, asystole and BP unrecordable. CPR was initiated. Her blood sugar was noted to be 20 and one amp of D50 was administered. She was subsequently intubated, transferred to ICU. Microbiology: Blood cultures: 09/30 ngtd Urine cultures: Respiratory cultures: 3/3 Staph aureus Current Antimicrobials: Zosyn / Vancomycin / Previous Antimicrobials: Objective - Exam Narrative Exam: General appearance: Alert in NAD, conversant pleasant Eyes: anicteric sclerae, moist conjunctivae; no lid-lag; PERRLA HENT: Atraumatic; oropharynx clear Neck: Trachea midline; supple, no thyromegaly or lymphadenopathy Lungs: CTA, with normal respiratory effort and no intercostal retractions CV: RRR, no murmurs Abdomen: Soft, non-tender; no masses or hepatosplenomegaly Extremities: right arm AVF covered with dressing Skin: Normal temperature, turgor and texture; no rash, ulcers or subcutaneous nodules Psych: Appropriate affect, alert and oriented to person, place and time. Neuro: alert and oriented x 3. Moving all extermities Lines: No CVL / PICC - Constitutional Vitals: Vital Signs Temp Pulse Resp BP Pulse Ox 98.1 F 84 20 132/62 97 10/03/17 07:31 10/03/17 07:31 10/03/17 07:31 10/03/17 07:31 10/03/17 07:31 Temperature -Last 24 Hours Temperature 98.1 F Temperature 98.2 F Temperature 98.4 F Temperature 98.2 F Temperature 98.0 F Temperature 98.2 F - Labs CBC & Chem 7: 10/03/17 06:34 10/03/17 06:34 Labs: Abnormal lab results 10/03/17 10/03/17 Range/Units 06:34 06:34 RBC 2.53 L (3.65-5.03) M/mm3 Hgb 7.2 L (10.1-14.3) gm/dl Hct 22.0 L (30.3-42.9) % RDW 17.0 H (13.2-15.2) % Seg Neuts % (Manual) 83.0 H (40.0-70.0) % Lymphocytes % (Manual) 12.0 L (13.4-35.0) % Nucleated RBC % 1.0 H (0.0-0.9) % Seg Neutrophils # Man 9.0 H (1.8-7.7) K/mm3 Potassium 3.3 L D (3.6-5.0) mmol/L BUN 32 H (7-17) mg/dL Creatinine 7.1 H (0.7-1.2) mg/dL Glucose 102 H (65-100) mg/dL Calcium 8.3 L (8.4-10.2) mg/dL
--- NOTE | 2017-10-03 12:47 | Progress Note ---
Assessment and Plan // Cardiac Arrest s/p CPR on 09/30 etiology could be severe anemia?? hypoglycemia?? (BG was at 20s during the arrest) Patient is now extubated, no neurologic deficit // Acute hypoxic respiratory failure; Likely from cardiac arrest, status post extubation on same day of intubation, Oxygen as needed to titrate O2 sats more than 90%, cont nebulizers, pulmonary following // Shock; thought to be septic, could be from volume depletion, currently off pressors // hypertension; continue current antihypertensives and when necessary medications // Sepsis; likely from PNA ? CXR no infiltrates sputum cultures positive for staph aureus (wait final cx - r/o MRSA) cont isolation and continue antibiotics ID following // Severe anemia; likely bleeding from AVF required 2 units of PRBC, monitor H/h No evidence of external bleeding // End-stage renal disease; on hemodialysis FMW, nephrology following // Malfunctioning of her right AV fistula; status post vascular surgical procedure - fistulogram with intervention on 09/29 // DVT prophylaxis; SCD // Full CODE STATUS Disposition; home with when medically stable. will remove TLC Brief history: The patient is a 62 yo female with a history of ESRD. She has and elevated right brachiobasilic fistula that was created 4 years ago. She went to dialysis and had a full treatment but had excessive bleeding after dialysis. She presented after dialysis with persistent bleeding. Despite pressure being held the bleeding persisted. Vascular was consulted and had right fintulogram and intervention. On 09/30 she was becoming unresponsive and went into cardiac arrest with PEA. She was started on ACLS, intubated and transferred to ICU. She eventually got extubated, monitored at tele, on regular HD, getting treated for sepsis with PNA. Off pressors, iv abx chaned to po. Now she noted to have abnormal rhythm on telemetry. Will consult cardiology and obtain CE, EKG, 2d echo. Hospitalist Physical exam: GENERAL: well-developed and well-nourished AAF lying on bed appeared to be in no discomfort. HEENT: Normocephalic. Atraumatic. No conjunctival congestion or icterus. Patient has moist mucous membranes. NECK: Supple. Trachea midline. CHEST/LUNGS: Clear to auscultated bilaterally, breathing nonlabored. No wheezes crackles or rhonchi. HEART/CARDIOVASCULAR: Regular in rate and rhythm. S1 and S2 positive. ABDOMEN: Abdomen is soft, nontender. Patient has normal bowel sounds. SKIN: There is no rash. Warm and dry. NEURO: No focal motor deficit. Follows command. MUSCULOSKELETAL: No joint effusion or tenderness. EXTRIMITY: No edema, no cyanosis or clubbing. slight fresh blood noted on rt femoral TLC PSYCH: Cooperative. Subjective Date of service: 10/03/17 Principal diagnosis: Staph in sputum, lactic acidosis, leukocytosis Interval history: Patient seen and examined. Medical records and medication list reviewed. No acute event overnight noted by the RN. Patient denies any chest pain or difficulty breathing. Patient is tolerating diet. c/o spot bleeding from the femoral central line Discussed plan of care at bedside with patient. Objective - Constitutional Vitals: Vital Signs - 12hr 10/03/17 10/03/17 10/03/17 03:35 04:34 04:35 Temperature 98.2 F Pulse Rate 81 80 81 Respiratory 20 Rate Blood Pressure 115/49 O2 Sat by Pulse 95 95 Oximetry 10/03/17 10/03/17 10/03/17 06:23 07:31 11:52 Temperature 98.1 F 98.1 F Pulse Rate 81 84 85 Respiratory 20 18 Rate Blood Pressure 132/62 117/54 O2 Sat by Pulse 97 94 Oximetry - Labs CBC & Chem 7: 10/04/17 16:38 10/05/17 06:01 Labs: Abnormal lab results 10/03/17 10/03/17 Range/Units 06:34 06:34 RBC 2.53 L (3.65-5.03) M/mm3 Hgb 7.2 L (10.1-14.3) gm/dl Hct 22.0 L (30.3-42.9) % RDW 17.0 H (13.2-15.2) % Seg Neuts % (Manual) 83.0 H (40.0-70.0) % Lymphocytes % (Manual) 12.0 L (13.4-35.0) % Nucleated RBC % 1.0 H (0.0-0.9) % Seg Neutrophils # Man 9.0 H (1.8-7.7) K/mm3 Potassium 3.3 L D (3.6-5.0) mmol/L BUN 32 H (7-17) mg/dL Creatinine 7.1 H (0.7-1.2) mg/dL Glucose 102 H (65-100) mg/dL Calcium 8.3 L (8.4-10.2) mg/dL
--- NOTE | 2017-10-03 13:21 | XRay Report ---
ROUTINE CHEST, TWO VIEWS: HISTORY: Evaluate for pneumonia. The patient has been extubated since 09/30/17. The lungs are generally clear. A small right pleural effusion is identified on the lateral image. No convincing pneumonia. Heart and mediastinal structures are within normal limits. IMPRESSION: Small right pleural effusion. No convincing pneumonia is detected.
[2017-10-03] MEDS: ZOFRAN IV PRN (13:55)
[2017-10-03] MEDS ORDERED: K-DUR PO ONE (14:00)
[2017-10-04] MEDS: PERCOCET 5/325 PO PRN ×4 (00:03→18:53)
[2017-10-04] MEDS: ZESTRIL PO SCH ×3 (00:04→22:45)
[2017-10-04] MEDS: APRESOLINE PO SCH ×3 (06:37→21:56)
[2017-10-04 06:46] LABS: Hematocrit 21.8 % (30.3-42.9); Hemoglobin 7.4 gm/dl (10.1-14.3); Mean Corpuscular HGB Conc 34 % (30-34); Mean Corpuscular Hemoglobin 30 pg (28-32); Mean Corpuscular Volume 89 fl (79-97); Platelet Count 276 K/mm3 (140-440); Red Blood Count 2.46 M/mm3 (3.65-5.03); Red Cell Distribution Width 17.3 % (13.2-15.2)
--- NOTE | 2017-10-04 07:28 | Progress Note ---
Assessment and Plan 1. ESRD: Continue HD three times a week, MWF schedule. 2. Bleeding AV fistula: Patient was also found to have clotted right arm AVF. S/p angioplasty and stent placed. 3. Anemia: S/p 2 units of PRBC, Epogen and IV Iron. Hb is gradually improving. 4. Respiratory failure: S/p extubated. 5. S/p Cardiac arrest. 6. Hypotension: Improved. Monitor BP. 7. SIRS: Improved. Followed by ID. Subjective Date of service: 10/04/17 Principal diagnosis: Staph in sputum, lactic acidosis, leukocytosis Interval history: Patient was seen and examined while on hemodialysis. She is feeling better. Objective - Vital Signs Vital signs: Vital Signs - 12hr 10/03/17 10/03/17 10/04/17 20:38 22:00 00:54 Temperature 98.2 F 98.2 F Pulse Rate 92 H 68 Respiratory 20 18 18 Rate Respiratory 20 Rate [Head] Blood Pressure 114/66 138/83 [Left] O2 Sat by Pulse 93 96 96 Oximetry 10/04/17 05:32 Temperature 98.9 F Pulse Rate 88 Respiratory 20 Rate Respiratory Rate [Head] Blood Pressure 113/60 [Left] O2 Sat by Pulse 91 Oximetry - General Appearance General appearance: well-developed, appears stated age, other (no distress) EENT: ATNC, PERRL, hearing intact, vision intact Neck: supple Respiratory: Present: Clear to Ascultation Cardiology: regular, S1S2, no murmurs Gastrointestinal: normoactive bowel sounds, no tenderness Integumentary: no rash, warm and dry Neurologic: no focal deficit, no asterixis, alert and oriented x3 Musculoskeletal: other (no edema, right arm AVF) Psychiatric: mood/affect appropriate, cooperative - Lab 10/04/17 16:38 10/04/17 16:38 Most recent lab results Calcium 8.3 mg/dL (8.4-10.2) L 10/03/17 06:34 Magnesium 2.00 mg/dL (1.7-2.3) 10/03/17 06:34
[2017-10-04] MEDS ORDERED: NACL 0.9 (PRIMING MACHINE ONLY DIALYSIS) MC ONE (10:26)
[2017-10-04] MEDS: THERAGRAN-M Tab PO SCH (14:01)
[2017-10-04] MEDS: NORMODYNE PO SCH ×2 (14:02→21:57)
[2017-10-04] MEDS: PROTONIX PO SCH (14:02)
[2017-10-04] MEDS: CARDURA PO SCH ×2 (14:03→21:54)
--- NOTE | 2017-10-04 15:24 | Progress Note ---
Assessment and Plan Assessment: 1) SIRS: resolved. Etiology most likely PEA arrest s/p CPR. 2) PEA arrest on 09/30 s/p CPR: etiology ? hypoglycemia ? severe anemia 3) Resp failure: post arrest-resolved 4) MSSA in sputum ? colonizer. CXR x 2 was negative 5) Malfunction AVF s/p fistulogram with intervention on 09/29 6) ESRD on HD 7) Severe anemia: ? from bleeding AVF 8) Elevated LFTs: ?shock liver from arrest Plan: -stop contact isolation -stop vanco -start keflex 500 mg po qday for 5 days I am signing off Thank you for your consultation, will follow up with you. Deyanira Zepeda MD Infectious Diseases Specialist [facility] ([facility]) M [phone] O [phone] Subjective Date of service: 10/04/17 Principal diagnosis: Staph in sputum, lactic acidosis, leukocytosis Interval history: Feels better no fever, minimal cough Microbiology: Blood cultures: 09/30 ngtd Urine cultures: Respiratory cultures: 09/30 MSSA Current Antimicrobials: Zosyn / Vancomycin / Previous Antimicrobials: Objective - Exam Narrative Exam: General appearance: Alert in NAD, conversant pleasant Eyes: anicteric sclerae, moist conjunctivae; no lid-lag; PERRLA HENT: Atraumatic; oropharynx clear Neck: Trachea midline; supple, no thyromegaly or lymphadenopathy Lungs: CTA, with normal respiratory effort and no intercostal retractions CV: RRR, no murmurs Abdomen: Soft, non-tender; no masses or hepatosplenomegaly Extremities: right arm AVF covered with dressing Skin: Normal temperature, turgor and texture; no rash, ulcers or subcutaneous nodules Psych: Appropriate affect, alert and oriented to person, place and time. Neuro: alert and oriented x 3. Moving all extermities Lines: No CVL / PICC - Constitutional Vitals: Vital Signs Temp Pulse Resp BP Pulse Ox 98.1 F 92 H 16 155/89 95 10/04/17 12:50 10/04/17 12:50 10/04/17 12:50 10/04/17 12:50 10/04/17 08:03 Temperature -Last 24 Hours Temperature 98.1 F Temperature 97.5 F Temperature 98.0 F Temperature 98.9 F Temperature 98.2 F Temperature 98.2 F Temperature 95.1 F - Labs CBC & Chem 7: 10/04/17 06:26 10/03/17 06:34 Labs: Abnormal lab results 10/04/17 Range/Units 06:26 RBC 2.46 L (3.65-5.03) M/mm3 Hgb 7.4 L (10.1-14.3) gm/dl Hct 21.8 L (30.3-42.9) % RDW 17.3 H (13.2-15.2) %
[2017-10-04] MEDS: PROCARDIA XL PO SCH ×2 (15:53→21:55)
--- NOTE | 2017-10-04 16:01 | Progress Note ---
Assessment and Plan // Cardiac Arrest s/p CPR on 09/30 etiology could be severe anemia?? hypoglycemia?? (BG was at 20s during the arrest) Patient is now extubated, no neurologic deficit //Elevated troponin will r/o ischemic cause no chest pain, abnormal T wave noted on tele will get CE, cardiology consult, obtain 2d echo // Acute hypoxic respiratory failure; Likely from cardiac arrest, status post extubation on same day of intubation, Oxygen as needed to titrate O2 sats more than 90%, cont nebulizers, pulmonary following // Shock; thought to be septic, could be from volume depletion, currently off pressors // hypertension; continue current antihypertensives and when necessary medications // SIRS; likely from volume depletion, cardiac arrest sputum cultures positive for staph aureus MSSA (likely colonized, CXR no infiltrates) stop isolation and continue antibiotics to treat colonized bacteria, ID following // Severe anemia; likely bleeding from AVF required 2 units of PRBC, monitor H/h No evidence of external bleeding // End-stage renal disease; on hemodialysis FMW, nephrology following // Malfunctioning of her right AV fistula; status post vascular surgical procedure - fistulogram with intervention on 09/29 // DVT prophylaxis; SCD // Full CODE STATUS Disposition; home with when medically stable Brief history: The patient is a 62 yo female with a history of ESRD. She has and elevated right brachiobasilic fistula that was created 4 years ago. She went to dialysis and had a full treatment but had excessive bleeding after dialysis. She presented after dialysis with persistent bleeding. Despite pressure being held the bleeding persisted. Vascular was consulted and had right fintulogram and intervention. On 09/30 she was becoming unresponsive and went into cardiac arrest with PEA. She was started on ACLS, intubated and transferred to ICU. She eventually got extubated, monitored at tele, on regular HD, getting treated for sepsis with PNA. Off pressors, iv abx chaned to po. Now she noted to have abnormal rhythm on telemetry. Will consult cardiology and obtain CE, EKG, 2d echo. Hospitalist Physical exam: GENERAL: well-developed and well-nourished AAF lying on bed appeared to be in no discomfort. HEENT: Normocephalic. Atraumatic. No conjunctival congestion or icterus. Patient has moist mucous membranes. NECK: Supple. Trachea midline. CHEST/LUNGS: Clear to auscultated bilaterally, breathing nonlabored. No wheezes crackles or rhonchi. HEART/CARDIOVASCULAR: Regular in rate and rhythm. S1 and S2 positive. ABDOMEN: Abdomen is soft, nontender. Patient has normal bowel sounds. SKIN: There is no rash. Warm and dry. NEURO: No focal motor deficit. Follows command. MUSCULOSKELETAL: No joint effusion or tenderness. EXTRIMITY: No edema, no cyanosis or clubbing. PSYCH: Cooperative. Subjective Date of service: 10/04/17 Principal diagnosis: Staph in sputum, lactic acidosis, leukocytosis Interval history: Patient seen and examined. Medical records and medication list reviewed. No acute event overnight noted by the RN. Patient denies any chest pain or difficulty breathing. Patient is tolerating diet. RN reported abnormal rhythm recorded on tele Objective - Constitutional Vitals: Vital Signs - 12hr 10/04/17 10/04/17 10/04/17 04:16 05:32 08:03 Temperature 98.9 F 98.0 F Pulse Rate 87 88 85 Respiratory 20 18 Rate Respiratory Rate [Head] Blood Pressure 113/60 151/70 Blood Pressure 113/60 [Left] O2 Sat by Pulse 95 91 95 Oximetry 10/04/17 10/04/17 10/04/17 09:00 09:15 09:30 Temperature 97.5 F L Pulse Rate 81 81 80 Respiratory 16 Rate Respiratory Rate [Head] Blood Pressure 168/81 168/90 160/77 Blood Pressure [Left] O2 Sat by Pulse Oximetry 10/04/17 10/04/17 10/04/17 09:45 10:00 10:15 Temperature Pulse Rate 78 67 77 Respiratory Rate Respiratory 20 Rate [Head] Blood Pressure 157/80 160/93 155/90 Blood Pressure [Left] O2 Sat by Pulse Oximetry 10/04/17 10/04/17 10/04/17 10:30 10:45 11:00 Temperature Pulse Rate 80 79 76 Respiratory Rate Respiratory Rate [Head] Blood Pressure 165/87 158/79 163/80 Blood Pressure [Left] O2 Sat by Pulse Oximetry 10/04/17 10/04/17 10/04/17 11:15 11:30 11:45 Temperature Pulse Rate 84 89 81 Respiratory Rate Respiratory Rate [Head] Blood Pressure 146/82 140/86 147/89 Blood Pressure [Left] O2 Sat by Pulse Oximetry 10/04/17 10/04/17 10/04/17 12:00 12:15 12:50 Temperature 98.1 F Pulse Rate 90 92 H 92 H Respiratory 16 Rate Respiratory Rate [Head] Blood Pressure 161/86 155/89 155/89 Blood Pressure [Left] O2 Sat by Pulse Oximetry 10/04/17 15:00 Temperature Pulse Rate 92 H Respiratory Rate Respiratory Rate [Head] Blood Pressure Blood Pressure [Left] O2 Sat by Pulse Oximetry - Labs CBC & Chem 7: 10/04/17 16:38 10/05/17 06:01 Labs: Abnormal lab results 10/04/17 Range/Units 06:26 RBC 2.46 L (3.65-5.03) M/mm3 Hgb 7.4 L (10.1-14.3) gm/dl Hct 21.8 L (30.3-42.9) % RDW 17.3 H (13.2-15.2) %
[2017-10-04 17:12] LABS: Hematocrit 27.6 % (30.3-42.9); Hemoglobin 8.5 gm/dl (10.1-14.3); Mean Corpuscular HGB Conc 31 % (30-34); Mean Corpuscular Hemoglobin 29 pg (28-32); Mean Corpuscular Volume 94 fl (79-97); Platelet Count 258 K/mm3 (140-440); Red Blood Count 2.94 M/mm3 (3.65-5.03); Red Cell Distribution Width 17.8 % (13.2-15.2)
[2017-10-04 17:33] LABS: Calcium 8.6 mg/dL (8.4-10.2)
[2017-10-04 18:16] LABS: Chol/HDL Ratio 2.85 %
[2017-10-04] MEDS: KEFLEX PO SCH (18:52)
[2017-10-04] MEDS ORDERED: VANCOMYCIN 750 MG in NACL 0.9% 250ML 250 ML IV SCH (20:00)
[2017-10-04] MEDS: BABY ASPIRIN PO SCH (21:54)
[2017-10-04] MEDS ORDERED: PROCARDIA XL PO SCH (22:00)
[2017-10-05] MEDS: PERCOCET 5/325 PO PRN ×4 (04:03→22:43)
[2017-10-05] MEDS: APRESOLINE PO SCH ×3 (06:44→22:36)
--- NOTE | 2017-10-05 07:22 | Progress Note ---
Assessment and Plan 1. ESRD: Continue HD three times a week, MWF schedule. 2. Bleeding AV fistula: Patient was also found to have clotted right arm AVF. S/p angioplasty and stent placed. 3. Anemia: S/p 2 units of PRBC, Epogen and IV Iron. Hb is improving and better. 4. Respiratory failure: S/p extubated. 5. S/p Cardiac arrest. 6. Hypotension: Improved. Monitor BP. 7. SIRS: Improved. Subjective Date of service: 10/05/17 Principal diagnosis: Staph in sputum, lactic acidosis, leukocytosis Interval history: Patient is feeling better. Objective - Vital Signs Vital signs: Vital Signs - 12hr 10/04/17 10/04/17 10/04/17 19:27 21:54 21:56 Temperature 98.4 F Pulse Rate 95 H 95 H 95 H Respiratory 18 Rate Respiratory Rate [Head] Blood Pressure 106/67 106/67 106/67 O2 Sat by Pulse 99 Oximetry 10/05/17 10/05/17 10/05/17 00:06 00:27 01:27 Temperature 98.1 F Pulse Rate 84 84 Respiratory 18 Rate Respiratory 20 Rate [Head] Blood Pressure 132/65 O2 Sat by Pulse 96 Oximetry 10/05/17 10/05/17 04:09 06:44 Temperature 98.1 F Pulse Rate 87 87 Respiratory 18 Rate Respiratory Rate [Head] Blood Pressure 138/75 138/75 O2 Sat by Pulse 98 Oximetry - General Appearance General appearance: well-developed, appears stated age, other (no distress) EENT: ATNC, PERRL, hearing intact, vision intact Neck: supple Respiratory: Present: Clear to Ascultation Cardiology: regular, S1S2, no murmurs Gastrointestinal: normoactive bowel sounds, no tenderness Integumentary: no rash, warm and dry Neurologic: no focal deficit, no asterixis, alert and oriented x3 Musculoskeletal: other (no edema, right arm AVF) Psychiatric: mood/affect appropriate, cooperative - Lab 10/05/17 06:01 10/05/17 06:01 Most recent lab results Calcium 9.0 mg/dL (8.4-10.2) 10/05/17 06:01 Magnesium 2.00 mg/dL (1.7-2.3) 10/03/17 06:34
[2017-10-05 08:02] LABS: Basophils # (Auto) 0.1 K/mm3 (0.0-0.1); Basophils % (Auto) 0.9 % (0.0-1.8); Eosinophils # (Auto) 0.6 K/mm3 (0.0-0.4); Eosinophils % (Auto) 6.5 % (0.0-4.3); Hematocrit 24.9 % (30.3-42.9); Hemoglobin 8.2 gm/dl (10.1-14.3); Lymphocytes % (Auto) 20.8 % (13.4-35.0); Mean Corpuscular HGB Conc 33 % (30-34); Mean Corpuscular Hemoglobin 30 pg (28-32); Mean Corpuscular Volume 91 fl (79-97); Monocytes # (Auto) 1.3 K/mm3 (0.0-0.8); Monocytes % (Auto) 13.6 % (0.0-7.3); Platelet Count 342 K/mm3 (140-440); Red Blood Count 2.73 M/mm3 (3.65-5.03); Red Cell Distribution Width 17.4 % (13.2-15.2)
[2017-10-05] MEDS: THERAGRAN-M Tab PO SCH (10:36)
[2017-10-05] MEDS: NORMODYNE PO SCH ×2 (10:36→22:36)
[2017-10-05] MEDS: PROTONIX PO SCH (10:36)
[2017-10-05] MEDS: BABY ASPIRIN PO SCH (10:36)
[2017-10-05] MEDS: PROCARDIA XL PO SCH ×2 (10:36→22:36)
[2017-10-05] MEDS: CARDURA PO SCH ×2 (10:37→22:35)
[2017-10-05] MEDS: KEFLEX PO SCH (10:37)
[2017-10-05] MEDS: ZESTRIL PO SCH ×2 (10:38→22:36)
--- NOTE | 2017-10-05 15:49 | Progress Note ---
Assessment and Plan // Cardiac Arrest s/p CPR on 09/30 etiology could be severe anemia?? hypoglycemia?? (BG was at 20s during the arrest) Patient is now extubated, no neurologic deficit //Elevated troponin will r/o ischemic cause no chest pain, abnormal T wave noted on tele trending CE, cardiology consulted wait for recommendation obtain 2d echo, showed preserved EF // Acute hypoxic respiratory failure; Likely from cardiac arrest, status post extubation on same day of intubation, Oxygen as needed to titrate O2 sats more than 90%, cont nebulizers, pulmonary following // Shock; thought to be septic, could be from volume depletion, currently off pressors // hypertension; continue current antihypertensives and when necessary medications // Sepsis; likely from PNA ? CXR no infiltrates sputum cultures positive for staph aureus (wait final cx - r/o MRSA) cont isolation and continue antibiotics ID following // Severe anemia; likely bleeding from AVF required 2 units of PRBC, monitor H/h No evidence of external bleeding // End-stage renal disease; on hemodialysis FMW, nephrology following // Malfunctioning of her right AV fistula; status post vascular surgical procedure - fistulogram with intervention on 09/29 // DVT prophylaxis; SCD // Full CODE STATUS Disposition; home with when medically stable. will remove TLC Brief history: The patient is a 62 yo female with a history of ESRD. She has and elevated right brachiobasilic fistula that was created 4 years ago. She went to dialysis and had a full treatment but had excessive bleeding after dialysis. She presented after dialysis with persistent bleeding. Despite pressure being held the bleeding persisted. Vascular was consulted and had right fintulogram and intervention. On 09/30 she was becoming unresponsive and went into cardiac arrest with PEA. She was started on ACLS, intubated and transferred to ICU. She eventually got extubated, monitored at tele, on regular HD, getting treated for sepsis with PNA. Off pressors, iv abx chaned to po. Now she noted to have abnormal rhythm on telemetry. Will consult cardiology and obtain CE, EKG, 2d echo. Hospitalist Physical exam: GENERAL: well-developed and well-nourished AAF lying on bed appeared to be in no discomfort. HEENT: Normocephalic. Atraumatic. No conjunctival congestion or icterus. Patient has moist mucous membranes. NECK: Supple. Trachea midline. CHEST/LUNGS: Clear to auscultated bilaterally, breathing nonlabored. No wheezes crackles or rhonchi. HEART/CARDIOVASCULAR: Regular in rate and rhythm. S1 and S2 positive. ABDOMEN: Abdomen is soft, nontender. Patient has normal bowel sounds. SKIN: There is no rash. Warm and dry. NEURO: No focal motor deficit. Follows command. MUSCULOSKELETAL: No joint effusion or tenderness. EXTRIMITY: No edema, no cyanosis or clubbing. slight fresh blood noted on rt femoral TLC PSYCH: Cooperative. Subjective Date of service: 10/05/17 Principal diagnosis: Staph in sputum, lactic acidosis, leukocytosis Interval history: Patient seen and examined. Medical records and medication list reviewed. No acute event overnight noted by the RN. Patient denies any chest pain or difficulty breathing. Patient is tolerating diet. Discussed plan of care at bedside with patient. Objective - Constitutional Vitals: Vital Signs - 12hr 10/05/17 10/05/17 10/05/17 04:09 06:44 10:36 Temperature 98.1 F Pulse Rate 87 87 100 H Respiratory 18 Rate Blood Pressure 138/75 138/75 111/59 O2 Sat by Pulse 98 Oximetry 10/05/17 10/05/17 10:37 10:38 Temperature Pulse Rate 100 H 100 H Respiratory Rate Blood Pressure 111/59 111/59 O2 Sat by Pulse Oximetry - Labs CBC & Chem 7: 10/05/17 06:01 10/05/17 06:01 Labs: Abnormal lab results 10/04/17 10/04/17 10/05/17 Range/Units 16:38 16:38 00:19 WBC 11.7 H (4.5-11.0) K/mm3 RBC 2.94 L (3.65-5.03) M/mm3 Hgb 8.5 L (10.1-14.3) gm/dl Hct 27.6 L (30.3-42.9) % RDW 17.8 H (13.2-15.2) % [place] % (Auto) (0.0-7.3) % Eos % (Auto) (0.0-4.3) % [place] # (0.0-0.8) K/mm3 Eos # (0.0-0.4) K/mm3 Chloride 95.3 L (98-107) mmol/L BUN (7-17) mg/dL Creatinine 3.8 H (0.7-1.2) mg/dL Glucose 115 H (65-100) mg/dL Troponin T 0.347 H* 0.367 H* (0.00-0.029) ng/mL Triglycerides 168 H (2-149) mg/dL 10/05/17 10/05/17 10/05/17 Range/Units 06:01 06:01 06:01 WBC (4.5-11.0) K/mm3 RBC 2.73 L (3.65-5.03) M/mm3 Hgb 8.2 L (10.1-14.3) gm/dl Hct 24.9 L (30.3-42.9) % RDW 17.4 H (13.2-15.2) % [place] % (Auto) 13.6 H (0.0-7.3) % Eos % (Auto) 6.5 H (0.0-4.3) % [place] # 1.3 H (0.0-0.8) K/mm3 Eos # 0.6 H (0.0-0.4) K/mm3 Chloride 93.4 L (98-107) mmol/L BUN 20 H (7-17) mg/dL Creatinine 5.7 H (0.7-1.2) mg/dL Glucose 124 H (65-100) mg/dL Troponin T 0.349 H* (0.00-0.029) ng/mL Triglycerides (2-149) mg/dL 10/05/17 Range/Units 14:05 WBC (4.5-11.0) K/mm3 RBC (3.65-5.03) M/mm3 Hgb (10.1-14.3) gm/dl Hct (30.3-42.9) % RDW (13.2-15.2) % [place] % (Auto) (0.0-7.3) % Eos % (Auto) (0.0-4.3) % [place] # (0.0-0.8) K/mm3 Eos # (0.0-0.4) K/mm3 Chloride (98-107) mmol/L BUN (7-17) mg/dL Creatinine (0.7-1.2) mg/dL Glucose (65-100) mg/dL Troponin T 0.335 H* (0.00-0.029) ng/mL Triglycerides (2-149) mg/dL
--- NOTE | 2017-10-05 19:10 | Consultation ---
History of Present Illness Consult date: 10/05/17 Consult reason: other (cardiopulmonary arrest) History of present illness: The patient is a 62-year-old woman with end-stage renal disease on hemodialysis. She was admitted to the hospital 6 days ago, complaining of excessive bleeding from her dialysis fistula. She ultimately underwent a vascular surgery procedure to declot her AV fistula. That was done on September 29. On September 30 while on telemetry, a CODE BLUE was called for what appeared to be respiratory failure. He was reported at that time the patient's blood sugar was in the 20s. There was no documentation of malignant bradycardia or tachycardia arrhythmia during the episode. She was successfully resuscitated and transferred to the ICU. She is now back on the telemetry floor, has had no further complaints. There is no chest pain, no shortness of breath, no palpitations. She has been in stable sinus rhythm. Cardiac consultation was requested today for further assessment of the CODE BLUE arrest. Past History Past Medical History: anemia, dialysis, ESRD, hypertension Past Surgical History: Other (shoulder surgery) Social history: single Family history: hypertension Medications and Allergies Allergies Allergy/AdvReac Type Severity Reaction Status Date / Time codeine AdvReac Nausea Verified 11/28/13 09:46 Home Medications Medication Instructions Recorded Confirmed Last Taken Type ALPRAZolam [Xanax] 0.5 mg PO BID PRN 11/28/13 09/29/17 09/28/17 History Labetalol [Normodyne TAB] 300 mg PO BID #60 tablet 12/10/13 09/29/17 09/28/17 Rx Butalb/Acetamin/Caff 50-325-40 1 tab PO Q6HR PRN 09/29/17 09/29/17 Unknown History [Fioricet] Cyclobenzaprine [Flexeril] 10 mg PO HS PRN 09/29/17 09/29/17 09/28/17 History Dexlansoprazole [Dexilant] 60 mg PO QDAY 09/29/17 09/29/17 09/28/17 History NIFEdipine [] 90 mg PO BID 09/29/17 09/29/17 09/28/17 History Ranitidine HCl [Heartburn Relief] 150 mg PO QPM 09/29/17 09/29/17 09/28/17 History Sevelamer Carbonate [Renvela] 2 tab PO TIDWM MDD 6,400 mg 09/29/17 09/29/1708/17 History Vit B Comp No.3/Folic/C/Biotin 1 each PO QDAY 09/29/17 09/29/17 09/28/17 History [Nephro-Britney Rx Tablet] Zolpidem [Ambien] 10 mg PO QHS PRN 09/29/17 09/29/17 09/28/17 History Active Meds: Active Medications Acetaminophen (Tylenol) 650 mg PO Q4H PRN PRN Reason: Pain MILD(1-3)/Fever >100.5/RAMAN Last Admin: 10/02/17 11:06 Dose: 650 mg Albuterol (Proventil) 2.5 mg IH Q4HRT PRN PRN Reason: Shortness Of Breath Aspirin (Baby Aspirin) 81 mg PO QDAY [facility] Last Admin: 10/05/17 10:36 Dose: 81 mg Atorvastatin Calcium (Lipitor) 40 mg PO QHS [facility] Last Admin: 10/04/17 21:55 Dose: 40 mg Cephalexin (Keflex) 250 mg PO Q24HR [facility] Last Admin: 10/05/17 10:37 Dose: 250 mg Doxazosin Mesylate (Cardura) 8 mg PO Q12HR [facility] Last Admin: 10/05/17 10:37 Dose: 8 mg Hydralazine HCl (Apresoline) 100 mg PO Q8HR [facility] Last Admin: 10/05/17 14:46 Dose: Not Given Sodium Chloride (Nacl 0.9%) 100 mls @ 999 mls/hr IV DESTINY PRN PRN Reason: Hypotension Last Admin: 10/01/17 14:41 Dose: 999 mls/hr Labetalol HCl (Normodyne) 300 mg PO BID [facility] Last Admin: 10/05/17 10:36 Dose: 300 mg Lisinopril (Zestril) 40 mg PO BID [facility] Last Admin: 10/05/17 10:38 Dose: 40 mg Magnesium Hydroxide (Milk Of Magnesia) 30 ml PO Q4H PRN PRN Reason: Constipation Multivitamins/Minerals (Theragran-M Tab) 1 each PO QDAY [facility] Last Admin: 10/05/17 10:36 Dose: 1 each Nifedipine (Procardia Xl) 60 mg PO BID [facility] Last Admin: 03/08/18 10:36 Dose: 60 mg Ondansetron HCl (Zofran) 4 mg IV Q8H PRN PRN Reason: N/V unrelieved by Reglan Last Admin: 10/03/17 13:55 Dose: 4 mg Ondansetron HCl (Zofran) 4 mg PO Q8HR PRN PRN Reason: Nausea And Vomiting Oxycodone/Acetaminophen (Percocet 5/325) 2 tab PO Q6H PRN PRN Reason: Pain, Moderate (4-6) Last Admin: 10/05/17 17:28 Dose: 2 tab Pantoprazole Sodium (Protonix) 40 mg PO QDAY JOSE Last Admin: 10/05/17 10:36 Dose: 40 mg Review of Systems Cardiovascular: no chest pain, no orthopnea, no palpitations, no rapid/ irregular heart beat, no edema, no lightheadedness, no shortness of breath Physical Examination Vital Signs Pulse Ox 96 09/29/17 07:46 General appearance: no acute distress HEENT: Positive: PERRL Neck: Positive: neck supple Cardiac: Positive: Reg Rate and Rhythm Lungs: Positive: Decreased Breath Sounds Neuro: Positive: Grossly Intact Abdomen: Positive: Soft Female genitourinary: deferred Skin: Positive: Clear Extremities: Absent: edema Results 10/05/17 06:01 10/05/17 06:01 CBC 10/05/17 Range/Units 06:01 WBC 9.5 (4.5-11.0) K/mm3 RBC 2.73 L (3.65-5.03) M/mm3 Hgb 8.2 L (10.1-14.3) gm/dl Hct 24.9 L (30.3-42.9) % Plt Count 342 (140-440) K/mm3 Lymph # 2.0 (1.2-5.4) K/mm3 [place] # 1.3 H (0.0-0.8) K/mm3 Eos # 0.6 H (0.0-0.4) K/mm3 Baso # 0.1 (0.0-0.1) K/mm3 Comprehensive Metabolic Panel 10/05/17 Range/Units 06:01 Sodium 137 (137-145) mmol/L Potassium 3.9 (3.6-5.0) mmol/L Chloride 93.4 L (98-107) mmol/L Carbon Dioxide 24 (22-30) mmol/L BUN 20 H (7-17) mg/dL Creatinine 5.7 H (0.7-1.2) mg/dL Glucose 124 H (65-100) mg/dL Calcium 9.0 (8.4-10.2) mg/dL EKG interpretations - Telemetry EKG Rhythm: Sinus Rhythm Assessment and Plan - Patient Problems (1) Syncope Current Visit: Yes Status: Acute Plan to address problem: Patient's episode of syncope while hospitalized on the telemetry floor was associated with profound hypoglycemia, no tachycardia or bradycardia arrhythmias noted. CODE BLUE arrest was likely hypoglycemia syncope. No indication of a primary cardiac etiology. No further cardiac workup is indicated at this time. Thank you for the consultation, will follow with you as necessary.
[2017-10-06] MEDS: ZOFRAN IV PRN (03:57)
[2017-10-06] MEDS: APRESOLINE PO SCH ×2 (06:26→16:14)
[2017-10-06] MEDS: PERCOCET 5/325 PO PRN ×2 (06:27→15:09)
--- NOTE | 2017-10-06 07:49 | Progress Note ---
Assessment and Plan ESRD on HD Anemia due to acute bleeding from dialysis access Hypoglycemia - reason for code blue cardiac arrest Recommendations: May go home cardiac jordan Will sign off Subjective Date of service: 10/06/17 Principal diagnosis: Staph in sputum, lactic acidosis, leukocytosis Interval history: Patient denies chest pain or shortness of breath She wants to go home No events on tele Objective Vital Signs Temp Pulse Resp BP Pulse Ox 10/06/17 03:36 98.4 F 82 18 134/90 96 10/06/17 00:24 98.7 F 18 133/65 10/05/17 22:36 136/72 10/05/17 22:35 83 137/72 10/05/17 20:24 98.8 F 78 18 118/65 94 10/05/17 16:33 98.3 F 80 18 120/68 99 10/05/17 14:46 62 101/58 10/05/17 10:38 100 H 111/59 10/05/17 10:37 100 H 111/59 10/05/17 10:36 100 H 111/59 - Physical Examination HEENT: Positive: PERRL Neck: Positive: neck supple Cardiac: Positive: Reg Rate and Rhythm Lungs: Positive: Normal Exam Neuro: Positive: Grossly Intact Abdomen: Positive: Soft Skin: Positive: Clear Extremities: Absent: edema - Labs and Meds CBC 10/05/17 Range/Units 06:01 WBC 9.5 (4.5-11.0) K/mm3 RBC 2.73 L (3.65-5.03) M/mm3 Hgb 8.2 L (10.1-14.3) gm/dl Hct 24.9 L (30.3-42.9) % Plt Count 342 (140-440) K/mm3 Lymph # 2.0 (1.2-5.4) K/mm3 [place] # 1.3 H (0.0-0.8) K/mm3 Eos # 0.6 H (0.0-0.4) K/mm3 Baso # 0.1 (0.0-0.1) K/mm3
--- NOTE | 2017-10-06 08:26 | Progress Note ---
Assessment and Plan 1. ESRD: Continue HD three times a week, MWF schedule. 2. Bleeding AV fistula: Patient was also found to have clotted right arm AVF. S/p angioplasty and stent placed. 3. Anemia: S/p 2 units of PRBC, Epogen and IV Iron. Hb is better. 4. Respiratory failure: S/p extubated. 5. S/p Cardiac arrest. 6. Hypotension: Improved. Monitor BP. 7. SIRS: Improved. Subjective Date of service: 10/06/17 Principal diagnosis: Staph in sputum, lactic acidosis, leukocytosis Interval history: Patient is feeling better. Objective - Vital Signs Vital signs: Vital Signs - 12hr 10/05/17 10/05/17 10/06/17 22:35 22:36 00:24 Temperature 98.7 F Pulse Rate 83 Respiratory 18 Rate Blood Pressure 137/72 136/72 133/65 O2 Sat by Pulse Oximetry 10/06/17 03:36 Temperature 98.4 F Pulse Rate 82 Respiratory 18 Rate Blood Pressure 134/90 O2 Sat by Pulse 96 Oximetry - General Appearance General appearance: well-developed, appears stated age, other (no distress) EENT: ATNC, PERRL, mucous membranes moist, hearing intact, vision intact Neck: supple Respiratory: Present: Clear to Ascultation Cardiology: regular, S1S2, no murmurs Gastrointestinal: normoactive bowel sounds, no tenderness, no distended Integumentary: no rash, warm and dry Neurologic: no focal deficit, no asterixis, alert and oriented x3 Musculoskeletal: other (no edema, right arm AVF) Psychiatric: mood/affect appropriate, cooperative - Lab 10/05/17 06:01 10/05/17 06:01 Most recent lab results Calcium 9.0 mg/dL (8.4-10.2) 10/05/17 06:01 Magnesium 2.00 mg/dL (1.7-2.3) 10/03/17 06:34
[2017-10-06] MEDS ORDERED: NACL 0.9 (PRIMING MACHINE ONLY DIALYSIS) MC ONE (11:58)
--- NOTE | 2017-10-06 12:00 | Discharge Summary ---
Providers - Providers Date of Admission: 09/29/17 12:21 Date of discharge: 10/06/17 Attending physician: KENIA MOODY 09/29/17 12:09 Consult to Physician [CONS] Routine Consulting Provider: MARGI SUERO Reason For Exam: dialysis Place consult to:: NEPHRO Notified:: Y Was contact made?: Yes If yes, spoke with:: Dr Suero Time called:: 11:30 Consult to Physician [CONS] Routine Consulting Provider: LIZ SHETTY Reason For Exam: malfunctioning RUE fistula Place consult to:: VASC Notified:: Y Time called:: 12:05 09/30/17 09:53 Consult to Physician [CONS] Routine Consulting Provider: NINA BLAS Reason For Exam: vasopressors Place consult to:: Dr. Blas Notified:: yes Primary care physician: PEDIATRIC PSYCHOLOGIST Hospitalization Condition: Fair Hospital course: Brief history: The patient is a 62 yo female with a history of ESRD. She has and elevated right brachiobasilic fistula that was created 4 years ago. She went to dialysis and had a full treatment but had excessive bleeding after dialysis. She presented after dialysis with persistent bleeding. Despite pressure being held the bleeding persisted. Vascular was consulted and had right fintulogram and intervention. On 09/30 she was becoming unresponsive and went into cardiac arrest with PEA. She was started on ACLS, intubated and transferred to ICU. She eventually got extubated, monitored at tele, on regular HD, getting treated for sepsis with PNA. Off pressors, iv abx chaned to po. Now she noted to have abnormal rhythm on telemetry. Consulted cardiology and obtained CE, EKG, 2d echo. Noted to have preserved Ef on 2d echo, no further intervention per cardiology. She was discharged home in stable condition. Discharge diagnosis and management: // Cardiac Arrest s/p CPR on 09/30 etiology could be severe anemia?? hypoglycemia?? (BG was at 20s during the arrest) Patient is now extubated, no neurologic deficit // SIRS; likely from volume depletion, cardiac arrest sputum cultures positive for staph aureus MSSA (likely colonized, CXR no infiltrates) stop isolation and continue antibiotics to treat colonized bacteria with keflex Initially treated as sepsis with empiric coverage //Elevated troponin likely from recent cardiac arrest, hypotension and underlying ESRD no chest pain, abnormal T wave noted on tele trended CE, cardiology consulted no further intervention recommended obtain 2d echo, showed preserved EF // Acute hypoxic respiratory failure; Likely from cardiac arrest, status post extubation on same day of intubation, Oxygen as needed to titrate O2 sats more than 90%, cont nebulizers, pulmonary following // Shock; thought to be septic, could be from volume depletion, currently off pressors // hypertension; continue current antihypertensives and when necessary medications // Severe anemia; likely bleeding from AVF required 2 units of PRBC, monitor H/h No evidence of external bleeding // End-stage renal disease; on hemodialysis FMW, nephrology following // Malfunctioning of her right AV fistula; status post vascular surgical procedure - fistulogram with intervention on 09/29 // DVT prophylaxis; SCD // Full CODE STATUS Disposition; home with Hospitalist Physical exam: GENERAL: well-developed and well-nourished AAF lying on bed appeared to be in no discomfort. HEENT: Normocephalic. Atraumatic. No conjunctival congestion or icterus. Patient has moist mucous membranes. NECK: Supple. Trachea midline. CHEST/LUNGS: Clear to auscultated bilaterally, breathing nonlabored. No wheezes crackles or rhonchi. HEART/CARDIOVASCULAR: Regular in rate and rhythm. S1 and S2 positive. ABDOMEN: Abdomen is soft, nontender. Patient has normal bowel sounds. SKIN: There is no rash. Warm and dry. NEURO: No focal motor deficit. Follows command. MUSCULOSKELETAL: No joint effusion or tenderness. EXTRIMITY: No edema, no cyanosis or clubbing. slight fresh blood noted on rt femoral TLC PSYCH: Cooperative. Disposition: DC-01 TO HOME OR SELFCARE Time spent for discharge: 32 minutes Core Measure Documentation - Palliative Care Palliative Care/ Comfort Measures: Not Applicable - Core Measures Any of the following diagnoses?: none Exam - Constitutional Vitals: Temp Pulse Resp BP Pulse Ox 98.1 F 75 18 124/78 96 10/06/17 10:00 10/06/17 11:15 10/06/17 10:00 10/06/17 11:15 10/06/17 07:55 Plan Activity: advance as tolerated Weight Bearing Status: Non-Weight Bearing Diet: renal Additional Instructions: Resume HD following discharge as scheduled outpt. Follow up with: MARGI SUERO MD [Staff Physician] - NINA Prescriptions: AtorvaSTATin [Lipitor] 40 mg PO QHS #20 tablet Aspirin [Aspirin BABY CHEW TAB] 81 mg PO QDAY #30 tab.chew Cephalexin [Keflex] 250 mg PO Q24HR #3 capsule Doxazosin [Cardura] 8 mg PO Q12HR #60 tablet hydrALAZINE [Apresoline TAB] 100 mg PO Q8HR #90 tablet Labetalol [Normodyne TAB] 300 mg PO BID #60 tablet Lisinopril [Zestril TAB] 40 mg PO BID #60 tablet NIFEdipine XL [Procardia Xl] 60 mg PO BID #60 tablet Ondansetron [Zofran TAB] 4 mg PO Q8HR PRN #20 tablet PRN Reason: Nausea And Vomiting Pantoprazole [Protonix TAB] 40 mg PO QDAY #30 tablet
[2017-10-06 15:03] VITALS: BP 128/70
[2017-10-06] MEDS: BABY ASPIRIN PO SCH (15:06)
[2017-10-06] MEDS: CARDURA PO SCH (15:07)
[2017-10-06] MEDS: NORMODYNE PO SCH (15:10)
[2017-10-06] MEDS: KEFLEX PO SCH (15:10)
[2017-10-06] MEDS: PROCARDIA XL PO SCH (15:11)
[2017-10-06] MEDS: PROTONIX PO SCH (15:11)
[2017-10-06] MEDS: ZESTRIL PO SCH (15:13)
[2017-10-06] MEDS: THERAGRAN-M Tab PO SCH (15:13)
== END 2017-10-06 16:00 | disposition home health service (06) | DRG 853 ==
LOC: ED 07:18 → 3A 12:21 → CC1 09-30 05:42 → 4A 10-01 15:17
PROVIDERS: ADMIT Internal Medicine; ATTEND Internal Medicine
PROC: 5A1D70Z Performance of Urinary Filtration, Intermittent, Less than 6 Hours Per Day (ICD-10-PCS; 2017-09-29)
PROC: 037 Upper Arteries, Dilation (ICD-10-PCS; principal; 2017-09-30)
PROC: 06HM33Z Insertion of Infusion Device into Right Femoral Vein, Percutaneous Approach (ICD-10-PCS; principal; 2017-09-30)
PROC: B54BZZA Ultrasonography of Right Lower Extremity Veins, Guidance (ICD-10-PCS; 2017-09-30)
PROC: 30233N1 Transfusion of Nonautologous Red Blood Cells into Peripheral Vein, Percutaneous Approach (ICD-10-PCS; 2017-09-30)
PROC: 4A033R1 Measurement of Arterial Saturation, Peripheral, Percutaneous Approach (ICD-10-PCS; 2017-09-30)
PROC: 0BH17EZ Insertion of Endotracheal Airway into Trachea, Via Natural or Artificial Opening (ICD-10-PCS; 2017-09-30)
PROC: 5A1935Z Respiratory Ventilation, Less than 24 Consecutive Hours (ICD-10-PCS; 2017-09-30)
PROC: 5A12012 Performance of Cardiac Output, Single, Manual (ICD-10-PCS; 2017-09-30)
PROC: 5A1D70Z Performance of Urinary Filtration, Intermittent, Less than 6 Hours Per Day (ICD-10-PCS; 2017-10-02)
PROC: 5A1D70Z Performance of Urinary Filtration, Intermittent, Less than 6 Hours Per Day (ICD-10-PCS; 2017-10-04)
PROC: 5A1D70Z Performance of Urinary Filtration, Intermittent, Less than 6 Hours Per Day (ICD-10-PCS; 2017-10-06)
DX: A41.9 Sepsis, unspecified organism (principal); N17.0 Acute kidney failure with tubular necrosis; N18.6 End stage renal disease; I46.9 Cardiac arrest, cause unspecified; J96.01 Acute respiratory failure with hypoxia; J18.9 Pneumonia, unspecified organism; R65.21 Severe sepsis with septic shock; T82.838A Hemorrhage due to vascular prosthetic devices, implants and grafts, initial encounter; I12.0 Hypertensive chronic kidney disease with stage 5 chronic kidney disease or end stage renal disease; T82.858A Stenosis of other vascular prosthetic devices, implants and grafts, initial encounter; Y83.9 Surgical procedure, unspecified as the cause of abnormal reaction of the patient, or of later complication, without mention of misadventure at the time of the procedure; Y92.89 Other specified places as the place of occurrence of the external cause; D64.9 Anemia, unspecified; E16.1 Other hypoglycemia
CPT/HCPCS: 36415; 36600; 36903; 71045; 71046; 74018; 80048; 80061; 80074; 82140; 82803; 82962; 83735; 84484; 85007; 85025; 85027; 85610; 85730; 86403; 86850; 86900; 86901; 86920; 87040; 87070; 87186; 87205; 93005; 93010; 93306; 94003; 95819; 99285; A9270-GY; C1725; C1751; C1769; C1874; C1894; J0171; J0461; J0690; J0885; J1644; J2060; J2250; J2405; J2543; J2916; J3010; J3370; J7030; J7050; P9016; Q0162; Q9967